=== PATIENT | female | born 1970 | race Asian ===

== ENCOUNTER 2018-07-07 18:33 | Emergency (ER) | payer OTHER ==
[2018-07-07 19:03] LABS: Absolute Lymphocytes (CBC) 1.6 K/uL (0.7-4.9); Absolute Monocytes 0.3 K/uL (0.1-1.3); Absolute Neutrophil 3.5 K/uL (1.8-8.0); Basophils % 0.4 % (0-1.3); Eosinophils % 0.5 % (0-4.4); Hematocrit 41.9 % (36.0-45.0); Lymphocytes % 29.7 % (15.3-44.8); MCH 29.7 pg (27.0-35.0); MCV 87.7 fL (80-100); MPV 6.9 fL (7.6-11.3); Monocytes % 5.4 % (3.3-12.3); RBC Red Blood Cell Count 4.78 M/uL (3.86-4.86)
[2018-07-07 19:12] LABS: Protime INR 1.02
--- NOTE | 2018-07-07 19:13 | RAD REPORT ---
EXAM DESCRIPTION: CT - Ct Stroke Brain Wo Cont - 07/07/2018 6:48 pm CLINICAL HISTORY: Numbness, weakness, headache CLINICAL HISTORY: None. TECHNIQUE: Axial 5 millimeter thick images of the head were obtained without IV contrast. All CT scans are performed using dose optimization technique as appropriate and may include automated exposure control or mA/KV adjustment according to patient size. FINDINGS: No intracranial hemorrhage, mass, or cerebral edema. No acute infarction identifiable. No cortical edema or sulcal effacement. Rios matter-white matter differentiation is preserved. Visualized portions of the mastoid air cells, paranasal sinuses, and orbits are unremarkable. Findings telephoned to doctor Richards 7:01 p.m. IMPRESSION: No CT evidence of acute intracranial process.
[2018-07-07 19:26] LABS: Potassium 3.4 mmol/L (3.5-5.1)
[2018-07-07 19:45] LABS: Arterial Blood Carboxyhemoglob 0.8 % (0-1.5); Blood Gas Oxyhemoglobin 96.8 % (94-97); Blood O2 Saturation 98.4 % (92-98.5)
[2018-07-07] MEDS ORDERED: LORazepam 2 MG/ML VIAL ONE (20:04)
--- NOTE | 2018-07-07 20:07 | RAD REPORT ---
EXAM DESCRIPTION: RAD - Chest Single View - 07/07/2018 7:24 pm CLINICAL HISTORY: Shortness of breath COMPARISON: None. TECHNIQUE: AP portable chest image was obtained 1903 hours . FINDINGS: Lungs are clear. Heart and vasculature are normal. No measurable pleural effusion and no p neumothorax. No acute bony abnormality seen. No acute aortic findings suspected. IMPRESSION: No acute cardiopulmonary process.
--- NOTE | 2018-07-07 21:02 | EDPHYS ---
Physician Documentation [facility] Name: Delores West Age: 47 yrs Sex: Female : 1970 Arrival Date: 07/07/2018 Time: 18:34 Bed 8 Private MD: ED Physician Juan Richards HPI: 07/07 19:00 This 47 yrs old Female presents to ER via Ambulatory with complaints of Numbness, pm1 Memory Loss, Weakness. 19:00 The patient's problem is reported as paresthesias, in right upper extremity, in right pm1 lower extremity, in left upper extremity, in left lower extremity, circumoral . Onset: The symptoms/episode began/occurred 1 hour(s) ago. Duration: The episode is continuous. Context: the episode(s) was witnessed, by family, occurred at home, occurred while the patient was at rest, Possible contributing factors include: sleep deprivation, family stressors. The symptoms are alleviated by nothing. The symptoms are aggravated by nothing. Associated signs and symptoms: Pertinent positives: headache, Pertinent negatives: abdominal pain, chest pain, nausea, shortness of breath, vomiting. Severity of symptoms: in the emergency department the symptoms are unchanged. Patient's baseline: Neuro: alert and fully oriented, Motor: no deficits, Ambulation: walks without assistance, Speech: normal. The patient has not experienced similar symptoms in the past. The patient has not recently seen a physician. Patient with complaints of on and off headache for 1 week. Having some family stressors at home. 1 hour prior to arrival she started hyperventilating and started feeling numbness to both feet, both hands, and around her mouth. Patient is able to move all extremities . Historical: - Allergies: 18:39 No Known Allergies; la1 - PMHx: 18:39 None; la1 - Immunization history:: Adult Immunizations up to date. - Social history:: Smoking status: Patient/guardian denies using tobacco. - Ebola Screening: : No symptoms or risks identified at this time. ROS: 19:00 Constitutional: Negative for fever, chills, and weight loss, Eyes: Negative for injury, pm1 pain, redness, and discharge, ENT: Negative for injury, pain, and discharge, Neck: Negative for injury, pain, and swelling, Cardiovascular: Negative for chest pain, palpitations, and edema, Respiratory: Negative for shortness of breath, cough, wheezing, and pleuritic chest pain, Abdomen/GI: Negative for abdominal pain, nausea, vomiting, diarrhea, and constipation, Back: Negative for injury and pain, : Negative for injury, bleeding, discharge, and swelling, MS/Extremity: Negative for injury and deformity, Skin: Negative for injury, rash, and discoloration. 19:00 Neuro: Positive for headache, numbness, tingling, of the right hand, left hand, right foot, left foot and mouth, Negative for altered mental status, dizziness, syncope, near syncope. 19:00 Psych: Positive for anxiety, insomnia, Negative for drug dependence, alcohol dependence, auditory hallucinations, visual hallucinations, homicidal ideation, suicide gesture, suicidal ideation. Exam: 19:00 Radiologist reports: Negative pm1 19:00 Constitutional: This is a well developed, well nourished patient who is awake, alert, and in no acute distress. Head/Face: Normocephalic, atraumatic. Eyes: Pupils equal round and reactive to light, extra-ocular motions intact. Lids and lashes normal. Conjunctiva and sclera are non-icteric and not injected. Cornea within normal limits. Periorbital areas with no swelling, redness, or edema. ENT: Nares patent. No nasal discharge, no septal abnormalities noted. Tympanic membranes are normal and external auditory canals are clear. Oropharynx with no redness, swelling, or masses, exudates, or evidence of obstruction, uvula midline. Mucous membranes moist. Neck: Trachea midline, no thyromegaly or masses palpated, and no cervical lymphadenopathy. Supple, full range of motion without nuchal rigidity, or vertebral point tenderness. No Meningismus. Chest/axilla: Normal chest wall appearance and motion. Nontender with no deformity. No lesions are appreciated. Cardiovascular: Regular rate and rhythm with a normal S1 and S2. No gallops, murmurs, or rubs. Normal PMI, no JVD. No pulse deficits. Respiratory: Lungs have equal breath sounds bilaterally, clear to auscultation and percussion. No rales, rhonchi or wheezes noted. No increased work of breathing, no retractions or nasal flaring. Abdomen/GI: Soft, non-tender, with normal bowel sounds. No distension or tympany. No guarding or rebound. No evidence of tenderness throughout. Back: No spinal tenderness. No costovertebral tenderness. Full range of motion. Skin: Warm, dry with normal turgor. Normal color with no rashes, no lesions, and no evidence of cellulitis. MS/ Extremity: Pulses equal, no cyanosis. Neurovascular intact. Full, normal range of motion. 19:00 Neuro: Orientation: is normal, Mentation: is normal, Cranial nerves: CN II- XII are normal as tested, Cerebellar function: normal finger to nose testing, Motor: moves all fours, strength is normal, strength is 5/5 in all extremities, Sensation: is normal, no obvious gross deficits, seizure activity, is not displayed by the patient. 19:00 Psych: Behavior/mood is anxious, Affect is animated, Oriented to person, place, time. Vital Signs: 18:36 BP 158 / 102; Pulse 120; Resp 20; Temp 98.1; Pulse Ox 100% on R/A; Weight 51.71 kg; la1 20:05 BP 152 / 90; Pulse 81; Resp 24; Pulse Ox 100% ; aa1 21:01 BP 136 / 82 RA Supine (auto/reg); Pulse 82 MON; Resp 12 S; Pulse Ox 100% on R/A; ds4 NIH Stroke Scale Scores: 19:22 NIHSS Score: 1 aa1 MDM: 18:50 Patient medically screened. soham 20:00 ED course: TPA not given because the patient is not having a CVA. pm1 21:00 Data reviewed: vital signs. Data interpreted: Pulse oximetry: on room air is 100 %. pm1 Interpretation: normal. Counseling: I had a detailed discussion with the patient and/or guardian regarding: the historical points, exam findings, and any diagnostic results supporting the discharge/admit diagnosis, lab results, radiology results, the need for outpatient follow up, to return to the emergency department if symptoms worsen or persist or if there are any questions or concerns that arise at home. 21:35 ED course: Patient with resolution of symptoms with Ativan given in ER. Will discharge pm1 patient home with small quantity of Ativan prn until patient can follow up with PCP and or psychiatry . 07/07 18:43 Order name: Basic Metabolic Panel; Complete Time: 19:49 [facility] 07/07 18:43 Order name: CBC with Diff; Complete Time: 19:49 [facility] 07/07 18:43 Order name: Protime (+inr); Complete Time: 19:49 [facility] 07/07 18:43 Order name: Ptt, Activated; Complete Time: 19:49 [facility] 07/07 18:43 Order name: CT Stroke Brain w/o Contrast; Complete Time: 19:49 [facility] 07/07 18:50 Order name: ABG; Complete Time: 19:49 [facility] 07/07 18:43 Order name: Stroke CXR 1 View; Complete Time: 20:16 [facility] 07/07 18:43 Order name: EKG; Complete Time: 18:44 [facility] 07/07 18:43 Order name: Accucheck; Complete Time: 20:09 [facility] 07/07 18:43 Order name: Cardiac monitoring; Complete Time: 19:18 [facility] 07/07 18:43 Order name: EKG - Nurse/Tech; Complete Time: 19:19 [facility] 07/07 18:43 Order name: IV Saline Lock; Complete Time: 19:19 [facility] 07/07 18:43 Order name: Labs collected and sent; Complete Time: 19:19 [facility] 07/07 18:43 Order name: NPO; Complete Time: 19:19 [facility] 07/07 18:43 Order name: O2 Per Protocol; Complete Time: 19:19 [facility] 07/07 18:43 Order name: O2 Sat Monitoring; Complete Time: 19:19 [facility] 07/07 18:43 Order name: Stroke Swallow Screen; Complete Time: 20:09 jm Administered Medications: 20:05 Drug: Ativan 0.5 mg Route: IVP; Site: left antecubital; jd3 21:34 Follow up: Response: No adverse reaction jd3 21:25 Drug: Ativan 0.5 mg Route: IVP; Site: left antecubital; jd3 21:34 Follow up: Response: Medication administered at discharge. jd3 Point of Care Testing: Blood Glucose: 19:20 Blood Glucose: 128 mg/dL; aa1 Ranges: Critical Glucose Levels:Adult <50 mg/dl or >400 mg/dl <40 mg/dl or >180 mg/dl Disposition: 07/07/18 21:01 Discharged to Home. Impression: Headache, Hyperventilation. - Condition is Stable. - Discharge Instructions: General Headache Without Cause, Hyperventilation, Generalized Anxiety Disorder. - Prescriptions for Ativan 0.5 mg Oral Tablet - take 1 tablet by ORAL route every 8 hours As needed; 10 tablet. - Medication Reconciliation Form, Thank You Letter form. - Follow up: Emergency Department; When: As needed; Reason: Worsening of condition. Follow up: Private Physician; When: 2 - 3 days; Reason: Recheck today's complaints, Continuance of care, Re-evaluation by your physician. - Problem is new. - Symptoms have improved. NIH Stroke Scale - NIH Stroke Score Date: 07/07/2018 Time: 19:22 Total Score = 1 1a. Level of Consciousness (LOC) - 0(Alert) 1b. Level of Consciousness (LOC) (Year \T\ Age) - 0(Both) 1c. LOC Commands (Open \T\ Closes Eyes/Varitypist) - 0(Both) 2. Best Gaze (Lateral Gaze Paresis) - 0(Normal) 3. Visual Field Loss - 0(No visual loss) 4. Facial Palsy - 0(Normal) 5a. Left Arm: Motor (10-second hold) - 0(No drift) 5b. Right Arm: Motor (10-second hold) - 0(No drift) 6a. Left Leg: Motor (5-second hold - always test supine) - 0(No drift) 6b. Right Leg: Motor (5-second hold - always test supine) - 0(No drift) 7. Limb Ataxia (finger/nose \T\ heel/jones - test with eyes open) - 0(Absent) 8. Sensory Loss (pinprick arms/legs/face) - 1(Mild to moderate loss) 9. Best Language: Aphasia (description/naming/reading) - 0(No aphasia) 10. Dysarthria (speech clarity - read or repeat words) - 0(Normal) 11. Extinction and Inattention (visual/tactile/auditory/spatial/personal) - 0(No abnormality) Initials: aa1 Addendum: 07/09/2018 07:15 Co-signature as Attending Physician, Juan Richards MD I agree with the [facility] assessment and plan of care. Signatures: Dispatcher [employer] EDBia Tavarez RN RN aa1 Juan Richards MD MD [facility] Brandon Douglas PA PA jmm Attema, Lee, RN RN la1 Oh Siddiqui, BUSINESS SERVICES DIRECTOR BUSINESS SERVICES DIRECTOR pm1 Gilberto Caceres RN RN jd3 Corrections: (The following items were deleted from the chart) 07/07 21:36 21:01 07/07/2018 21:01 Discharged to Home. Impression: Headache; aa1 Hyperventilation. Condition is Stable. Forms are Medication Reconciliation Form, Thank You Letter, Antibiotic Education, Prescription Opioid Use. Follow up: Emergency Department; When: As needed; Reason: Worsening of condition. Follow up: Private Physician; When: 2 - 3 days; Reason: Recheck today's complaints, Continuance of care, Re-evaluation by your physician. Problem is new. Symptoms have improved. pm1
--- NOTE | 2018-07-07 21:02 | ER ---
Nurse's Notes [facility] Emergency Department Name: Delores West Age: 47 yrs Sex: Female : 1970 Arrival Date: 07/07/2018 Time: 18:34 Bed 8 Private MD: Diagnosis: Headache;Hyperventilation Presentation: 07/07 18:36 Presenting complaint: Patient states: I have had a headache since this morning but I la1 have been having intermittent memory loss for the last week and numbness in both arms starting at 1800. Transition of care: patient was not received from another setting of care. Onset of symptoms was July 07, 2018 at 18:00. Risk Assessment: Do you want to hurt yourself or someone else? Patient reports no desire to harm self or others. Initial Sepsis Screen: Does the patient meet any 2 criteria? No. Patient's initial sepsis screen is negative. Does the patient have a suspected source of infection? No. Patient's initial sepsis screen is negative. Care prior to arrival: None. 18:36 Method Of Arrival: Ambulatory la1 18:36 Acuity: DENISE 2 la1 19:20 Pre-hospital glucose is not applicable to this patient. aa1 Stroke Activation: Symptom onset < 3 hours Physician: Stroke Attending; Name: ; Notified At: ; Arrived At: Physician: Chief Stroke Resident; Name: ; Notified At: ; Arrived At: Physician: Stroke Resident; Name: ; Notified At: ; Arrived At: Physician: ED Attending; Name: ; Notified At: ; Arrived At: Physician: ED Resident; Name: ; Notified At: ; Arrived At: Historical: - Allergies: 18:39 No Known Allergies; la1 - PMHx: 18:39 None; la1 - Immunization history:: Adult Immunizations up to date. - Social history:: Smoking status: Patient/guardian denies using tobacco. - Ebola Screening: : No symptoms or risks identified at this time. Screenin:10 Abuse screen: Denies threats or abuse. Denies injuries from another. Nutritional mg2 screening: No deficits noted. Tuberculosis screening: No symptoms or risk factors identified. Fall Risk IV access (20 points). Gait- Weak (10 pts.). Assessment: 19:15 General: Appears in no apparent distress. comfortable, slender, well groomed, Behavior aa1 is cooperative, appropriate for age, anxious. Pain: Complains of pain in head Quality of pain is described as aching, Pain began 1 week ago Is intermittent. Neuro: Level of Consciousness is awake, alert, obeys commands, Oriented to person, place, time, situation, Fashion Director Party Plan Sales are equal bilaterally Moves all extremities. Full function Speech is normal, Facial symmetry appears normal, Pupils are PERRLA, Numbness in right arm, left arm and mouth Reports headache Denies blurred vision dizziness. Cardiovascular: Heart tones S1 S2 present Rhythm is regular. Respiratory: Airway is patent Respiratory effort is even, unlabored, Respiratory pattern is tachypnea. GI: No signs and/or symptoms were reported involving the gastrointestinal system. : No signs and/or symptoms were reported regarding the genitourinary system. EENT: No signs and/or symptoms were reported regarding the EENT system. Derm: Skin is intact, is healthy with good turgor, Skin is pink, warm \T\ dry. Musculoskeletal: Circulation, motion, and sensation intact. Capillary refill < 3 seconds. 19:21 Patient has been NPO before screening. The patient is alert, and able to follow aa1 commands. The patient does not exhibit slurred or garbled speech. The patient is not exhibiting difficulty speaking. The patient does not exhibit difficulty understanding words. The patient is able to swallow own secretions with no drooling or need for suction. Patient tolerated one teaspoon of water. No drooling, immediate coughing, gurgling, or clearing of the throat was noted. The patient tolerated 90mL of water. No drooling, immediate coughing, gurgling, or clearing of the throat was noted. The patient passed the bedside swallow screening. Oral medications may be given as ordered. Contact Physician for further diet orders. 19:21 Provider notified of bedside swallow screening results: Oh Siddiqui NP. T-PA aa1 (Activase) Screening: Contraindications: Rapidly improving condition or minor deficit: Yes. 20:49 Reassessment: Patient appears in no apparent distress at this time. Patient and/or aa1 family updated on plan of care and expected duration. Pain level reassessed. Patient is alert, oriented x 3, equal unlabored respirations, skin warm/dry/pink. Pt reports she is feeling a little better but her mouth still feels numb. 21:33 Reassessment: Patient appears in no apparent distress at this time. Patient is alert, aa1 oriented x 3, equal unlabored respirations, skin warm/dry/pink. Discussed d/c \T\ f/u instructions with pt \T\ family; verbalizes understanding of instructions Patient denies pain at this time. Patient states feeling better. Vital Signs: 18:36 BP 158 / 102; Pulse 120; Resp 20; Temp 98.1; Pulse Ox 100% on R/A; Weight 51.71 kg; la1 20:05 BP 152 / 90; Pulse 81; Resp 24; Pulse Ox 100% ; aa1 21:01 BP 136 / 82 RA Supine (auto/reg); Pulse 82 MON; Resp 12 S; Pulse Ox 100% on R/A; ds4 NIH Stroke Scale Scores: 19:22 NIHSS Score: 1 aa1 ED Course: 18:34 Patient arrived in ED. rg4 18:38 Triage completed. la1 18:39 Arm band placed on right wrist. la1 18:43 Oh Siddiqui NP is PHCP. pm1 18:43 Juan Richards MD is Attending Physician. pm1 18:43 Mike Hamilton, AARON is Primary Nurse. mg2 18:47 CT completed. Patient moved to CT via wheelchair. Patient moved back from CT. cw1 18:48 CT Stroke Brain w/o Contrast In Process Unspecified. EDMS 18:59 Initial lab(s) drawn, by label stitcher, sent to lab. Inserted saline lock: 20 gauge in left jb1 antecubital area, using aseptic technique. 19:10 Patient has correct armband on for positive identification. Bed in low position. Call aa1 light in reach. Side rails up X2. Adult w/ patient. tax examiner on. Pulse ox on. NIBP on. 19:16 EKG done, by ED staff, reviewed by Oh Siddiqui NP. aa1 19:20 Oxygen administration via nasal cannula \T\ 2L/min O2 via pt O2 sat decreased to low 90's aa1 while sleeping; placed on 2L NC. 19:24 Stroke CXR 1 View In Process Unspecified. EDMS 20:23 Warm blanket given. jd3 21:35 No provider procedures requiring assistance completed. IV discontinued, intact, aa1 bleeding controlled, No redness/swelling at site. Pressure dressing applied. Administered Medications: 20:05 Drug: Ativan 0.5 mg Route: IVP; Site: left antecubital; jd3 21:34 Follow up: Response: No adverse reaction jd3 21:25 Drug: Ativan 0.5 mg Route: IVP; Site: left antecubital; jd3 21:34 Follow up: Response: Medication administered at discharge. jd3 Point of Care Testing: Blood Glucose: 19:20 Blood Glucose: 128 mg/dL; aa1 Ranges: Outcome: 21:01 Discharge ordered by MD. pm1 21:35 Discharged to home via wheelchair, with family. aa1 21:35 Condition: good 21:35 Discharge instructions given to patient, family, Instructed on discharge instructions, follow up and referral plans. medication usage, Demonstrated understanding of instructions, follow-up care, medications, Prescriptions given X 1. 21:36 Patient left the ED. aa1 NIH Stroke Scale - NIH Stroke Score Date: 07/07/2018 Time: 19:22 Total Score = 1 1a. Level of Consciousness (LOC) - 0(Alert) 1b. Level of Consciousness (LOC) (Year \T\ Age) - 0(Both) 1c. LOC Commands (Open \T\ Closes Eyes/Fish Smoker) - 0(Both) 2. Best Gaze (Lateral Gaze Paresis) - 0(Normal) 3. Visual Field Loss - 0(No visual loss) 4. Facial Palsy - 0(Normal) 5a. Left Arm: Motor (10-second hold) - 0(No drift) 5b. Right Arm: Motor (10-second hold) - 0(No drift) 6a. Left Leg: Motor (5-second hold - always test supine) - 0(No drift) 6b. Right Leg: Motor (5-second hold - always test supine) - 0(No drift) 7. Limb Ataxia (finger/nose \T\ heel/jones - test with eyes open) - 0(Absent) 8. Sensory Loss (pinprick arms/legs/face) - 1(Mild to moderate loss) 9. Best Language: Aphasia (description/naming/reading) - 0(No aphasia) 10. Dysarthria (speech clarity - read or repeat words) - 0(Normal) 11. Extinction and Inattention (visual/tactile/auditory/spatial/personal) - 0(No abnormality) Initials: aa1 Signatures: Dispatcher [employer] Krzysztof Larkin1 Bia Fuentes, RN RN aa1 Sally, Crystal cw1 Amos Guardado ds4 Alber Chan, RN RN la1 Oh Siddiqui, COTTON OPENER COTTON OPENER pm1 Guerline Miller rg4 Gilberto Caceres, RN RN jd3 Joy, Mike RN RN mg2
--- NOTE | 2018-07-09 10:12 | EKG ---
Test Date: 2018-07-07 Test Time: 19:15:41 Cafe Site Attendant: MG MEASUREMENT RESULTS: Intervals: Rate: 87 TX: 128 QRSD: 78 QT: 388 QTc: 466 [place]: P: 34 TX: 128 QRS: 33 T: 7 INTERPRETIVE STATEMENTS: Normal sinus rhythm ST & T wave abnormality, consider inferior ischemia Abnormal ECG No previous ECG available for comparison Electronically Signed On 07-09-18 10:11:01 CDT by Sam Stack
== END 2018-07-07 21:36 | disposition home or self-care (01) ==
LOC: ER 18:33
DX: R51 Headache (principal); R06.4 Hyperventilation
CPT/HCPCS: 36415; 70450; 71045; 80048; 82805; 82962; 85025; 85610; 85730; 93005; 96374; 99285

== ENCOUNTER 2021-05-13 08:40 | Emergency (ER) | payer OTHER ==
--- NOTE | 2021-05-13 11:01 | RAD REPORT ---
EXAM DESCRIPTION: Shayy Single View05/13/2021 10:25 am CLINICAL HISTORY: Weakness COMPARISON: 2018 FINDINGS: The lungs appear clear of acute infiltrate. The heart is normal size IMPRESSION: No acute abnormalities displayed
--- NOTE | 2021-05-13 11:32 | RAD REPORT ---
EXAM DESCRIPTION: MRI - Brain Wo Cont - 05/13/2021 10:04 am CLINICAL HISTORY: Weakness COMPARISON: 2018 TECHNIQUE: Axial, sagittal, and coronal magnetic resonance images of the brain were obtained. FINDINGS: No abnormal signal within the brain Diffusion-weighted/ADC mapping does not reveal evidence of acute infarction. The ventricles are normal caliber. An extra-axial fluid collection is not noted. Fluid within the sinuses/mastoids is not seen IMPRESSION: No acute intracranial abnormality noted
[2021-05-13 12:12] LABS: Absolute Lymphocytes (CBC) 0.7 K/uL (0.7-4.9); Basophils % 0.2 % (0-1.3); Hematocrit 39.7 % (36.0-45.0); Lymphocytes % 14.2 % (15.3-44.8); MPV 6.3 fL (7.6-11.3); Protime INR 0.97; RBC Red Blood Cell Count 4.48 M/uL (3.86-4.86)
[2021-05-13 12:28] LABS: ALT/SGPT 51 U/L (12-78); AST/SGOT 34 U/L (15-37); Albumin 3.9 g/dL (3.4-5.0); Alkaline Phosphatase 93 U/L (45-117); BUN Blood Urea Nitrogen 16 mg/dL (7-18); Bicarbonate 28 mmol/L (21-32); Bilirubin Direct < 0.1 mg/dL (0-0.2); Bilirubin Total 0.2 mg/dL (0.2-1.0); Glucose Level 105 mg/dL (74-106); Magnesium 2.1 mg/dL (1.8-2.4); NT PRO-BNP 70 pg/mL (<125); Sodium Level 143 mmol/L (136-145); Troponin (Emerg Dept Use Only) < 0.02 ng/mL (0.0-0.045)
[2021-05-13] MEDS ORDERED: LORazepam 2 MG/ML VIAL ONE (13:34)
--- NOTE | 2021-05-13 14:59 | EDPHYS ---
Physician Documentation [facility] Name: Delores West Age: 50 yrs Sex: Female : 1970 Arrival Date: 05/13/2021 Time: 08:41 Bed 13 Private MD: ED Physician Michael Jc HPI: 05/13 09:30 This 50 yrs old Female presents to ER via Ambulatory with complaints of Shaking. [facility] 09:30 The patient's problem is reported as paresthesias, all over. Onset: The [facility] symptoms/episode began/occurred gradually, this morning. The symptoms are alleviated by nothing. The symptoms are aggravated by nothing. Associated signs and symptoms: Pertinent positives: tingling, Pertinent negatives: shortness of breath. 50-year-old female with no chronic medical conditions presents emerged part with complaints of tingling and paresthesias throughout the body. Patient also complains of spasms to the lower lip. Patient does have some concerns for CVA. Patient has seen a neurologist for this. Patient also complains of generalized fatigue and a heavy type feeling. Patient denies chest pain. . Historical: - Allergies: 09:26 No Known Allergies; da3 - Immunization history:: Client reports receiving the 2nd dose of the Covid vaccine. ROS: 09:30 Cardiovascular: Negative for chest pain, palpitations, and edema. jmm 09:30 Constitutional: Positive for fatigue. 09:30 Respiratory: Negative for cough. 09:30 Neuro: Positive for numbness, weakness. 09:30 All other systems are negative. Exam: 09:30 Constitutional: This is a well developed, well nourished patient who is awake, alert, jmm and in no acute distress. Head/Face: atraumatic. Eyes: EOMI, no conjunctival erythema appreciated ENT: Moist Mucus Membranes Neck: Trachea midline, Supple Chest/axilla: Normal chest wall appearance and motion. Cardiovascular: Regular rate and rhythm. No edema appreciated Respiratory: Normal respirations, no respiratory distress appreciated Abdomen/GI: Non distended, soft Back: Normal ROM Skin: General appearance color normal MS/ Extremity: Moves all extremities, no obvious deformities appreciated, no edema noted to the lower extremities 09:30 Skin: Appearance: Color: normal in color. 09:30 Neuro: Orientation: is normal, Mentation: is normal, Memory: is normal, Gait: is steady. 09:30 Psych: Behavior/mood is pleasant, cooperative, anxious. Vital Signs: 09:24 BP 130 / 90; Pulse 92; Resp 20; Temp 98; Pulse Ox 100% on R/A; da3 14:00 BP 104 / 71; Pulse 72; Resp 18; Pulse Ox 100% on R/A; tr6 MDM: 10:02 Patient medically screened. [facility] 14:52 Data reviewed: vital signs, nurses notes. Counseling: I had a detailed discussion with [facility] the patient and/or guardian regarding: the historical points, exam findings, and any diagnostic results supporting the discharge/admit diagnosis, the need for outpatient follow up, to return to the emergency department if symptoms worsen or persist or if there are any questions or concerns that arise at home. 14:57 Data reviewed: EMS record. ED course: Patient is alert nontoxic in appearance in the [facility] ED. No focal neuro deficits are appreciated. Patient states symptoms are alleviated after Ativan. MRI is negative for CVA. Patient is encouraged to follow-up with neurology for further evaluation otherwise given strict return precautions. Patient understood and agrees to plan of care.. 05/13 09:30 Order name: Basic Metabolic Panel [facility] 05/13 09:30 Order name: CBC with Diff; Complete Time: 12:26 [facility] 05/13 09:30 Order name: LFT's; Complete Time: 12:31 [facility] 05/13 09:30 Order name: Magnesium; Complete Time: 12:31 [facility] 05/13 09:30 Order name: NT PRO-BNP; Complete Time: 12:31 [facility] 05/13 09:30 Order name: PT-INR; Complete Time: 12:26 [facility] 05/13 09:30 Order name: Troponin (emerg Dept Use Only); Complete Time: 12:31 [facility] 05/13 09:30 Order name: XRAY Chest (1 view); Complete Time: 11:09 [facility] 05/13 09:30 Order name: EKG; Complete Time: 09:31 [facility] 05/13 09:30 Order name: MRI - Brain Wo Cont; Complete Time: 11:34 [facility] 05/13 09:31 Order name: Basic Metabolic Panel; Complete Time: 12:31 [facility] 05/13 12:52 Order name: Troponin (emerg Dept Use Only) [facility] 05/13 12:52 Order name: Troponin (Emerg Dept Use Only); Complete Time: 14:44 [facility] 05/13 09:30 Order name: Cardiac monitoring; Complete Time: 12:20 [facility] 05/13 09:30 Order name: EKG - Nurse/Tech; Complete Time: 12:49 [facility] 05/13 09:30 Order name: IV Saline Lock; Complete Time: 12:06 [facility] 05/13 09:30 Order name: Labs collected and sent; Complete Time: 11:54 [facility] 05/13 09:30 Order name: O2 Per Protocol; Complete Time: 11:54 [facility] 05/13 09:30 Order name: O2 Sat Monitoring; Complete Time: 11:54 [facility] Administered Medications: 13:13 Drug: Ativan (LORazepam) 0.5 mg Route: IVP; Site: right wrist; tr6 Disposition: 16:26 Co-signature as Attending Physician, Michael Jc MD I agree with the assessment and rn plan of care. Attestation: The patient's history, exam findings, diagnostics, and a summary of any interventions or procedures was reviewed in detail with Brandon WELDON. Disposition Summary: 05/13/21 14:58 Discharge Ordered Location: Home [facility] Condition: Stable jm Diagnosis - Paresthesia of skin jmm Followup: [facility] - With: Gold Powell MD - When: 2 - 3 days - Reason: Recheck today's complaints, Continuance of care, Re-evaluation by your physician Discharge Instructions: - Discharge Summary Sheet jm - Paresthesia jm Forms: - Medication Reconciliation Form [facility] - Thank You Letter [facility] - Antibiotic Education [facility] - Prescription Opioid Use [facility] Prescriptions: - Hydroxyzine HCl 25 mg Oral Tablet - take 1 tablet by ORAL route every 6 hours As needed; 12 tablet; Refills: 0, [facility] Product Selection Permitted Signatures: Dispatcher [employer] Brandon England PA PA jmm Nieto, Roman, MD MD rn Ramnanan, Tiffany RN RN tr6 Junior Thayer RN RN da3
--- NOTE | 2021-05-13 14:59 | ER ---
Nurse's Notes [facility] Name: Delores West Age: 50 yrs Sex: Female : 1970 Arrival Date: 05/13/2021 Time: 08:41 Bed 13 Private MD: Diagnosis: Paresthesia of skin Presentation: 05/13 09:23 Chief complaint: Patient states: lower lip shaking and heart palpatatiomn. da3 09:23 Method Of Arrival: Ambulatory da3 09:23 Acuity: DENISE 4 da3 09:25 Coronavirus screen: Client denies travel out of the [place] in the last 14 days. At this da3 time, the client does not indicate any symptoms associated with coronavirus-19. Ebola Screen: No symptoms or risks identified at this time. Risk Assessment: Do you want to hurt yourself or someone else? Patient reports no desire to harm self or others. 09:25 Acuity: DENISE 4 da3 Triage Assessment: 09:26 General: Appears in no apparent distress. comfortable, Behavior is calm, cooperative. da3 Historical: - Allergies: 09:26 No Known Allergies; da3 - Immunization history:: Client reports receiving the 2nd dose of the Covid vaccine. Screenin:22 Abuse screen: Denies threats or abuse. Denies injuries from another. Nutritional tr6 screening: No deficits noted. Tuberculosis screening: No symptoms or risk factors identified. Fall Risk None identified. Assessment: 12:21 General: Appears in no apparent distress. comfortable, Behavior is calm, cooperative, tr6 appropriate for age. Pain: Denies pain. Neuro: No deficits noted. Level of Consciousness is awake, alert, obeys commands, Oriented to person, place, time, situation, Appropriate for age. Cardiovascular: No deficits noted. Respiratory: No deficits noted. GI: No deficits noted. : No deficits noted. EENT: No deficits noted. Derm: No deficits noted. Musculoskeletal: No deficits noted. 14:49 Reassessment: Patient states symptoms have improved. FATEMEH Douglas at bedside to discuss tr6 results and POC with pt. Vital Signs: 09:24 BP 130 / 90; Pulse 92; Resp 20; Temp 98; Pulse Ox 100% on R/A; da3 14:00 BP 104 / 71; Pulse 72; Resp 18; Pulse Ox 100% on R/A; tr6 ED Course: 08:41 Patient arrived in ED. ds1 09:24 Triage completed. da3 09:29 Brandon Douglas PA is PHCP. m 09:29 Michael Jc MD is Attending Physician. jmm 09:58 MRI - Brain Wo Cont In Process Unspecified. EDMS 10:25 XRAY Chest (1 view) In Process Unspecified. EDMS 11:50 Soledad Magana, RN is Primary Nurse. tr6 12:02 Inserted saline lock: 20 gauge in right wrist, using aseptic technique. Blood collected.tr6 12:22 Resting quietly. Awaiting lab results. tr6 12:22 No provider procedures requiring assistance completed. tr6 12:22 Patient has correct armband on for positive identification. Placed in gown. Bed in low tr6 position. Call light in reach. Side rails up X 1. diaphragm builder on. Pulse ox on. NIBP on. Door closed. Noise minimized. Visitors limited. Lights dimmed. Moved to private room. Warm blanket given. 14:58 Gold Powell MD is Referral Physician. [facility] 15:20 IV discontinued, intact, bleeding controlled, No redness/swelling at site. Pressure ss dressing applied. Administered Medications: 13:13 Drug: Ativan (LORazepam) 0.5 mg Route: IVP; Site: right wrist; tr6 Outcome: 14:58 Discharge ordered by . [facility] 15:20 Discharged to home ambulatory. ss 15:20 Condition: good 15:20 Discharge instructions given to patient, Instructed on discharge instructions, follow up and referral plans. medication usage, Demonstrated understanding of instructions, follow-up care, medications, Prescriptions given X 1. 15:21 Patient left the ED. ss Signatures: Dispatcher [employer] EDMS Brandon Douglas PA PA Karina Hays ds1 Cathy Guallpa RN RN Soledad Magana, AARON RN tr6 Junior Thayer, AARON RN da3
[2021-05-13 15:29] VITALS: TEMP 98; O2SAT 100
[2021-05-13 15:31] VITALS: BP 104/71
== END 2021-05-13 15:21 | disposition home or self-care (01) ==
LOC: ER 08:40
DX: R20.2 Paresthesia of skin (principal)
CPT/HCPCS: 36415; 70551; 71045; 80048; 80076; 83735; 83880; 84484; 85025; 85610; 93005; 96374; 99284

== ENCOUNTER 2021-10-14 07:27 | Day surgery (SDC) | payer OTHER ==
[2021-10-14 07:47] LABS: Specific Gravity 1.015 (1.005-1.030)
[2021-10-14] MEDS ORDERED: propofoL 200 MG/20 ML VIAL IV ONE (08:06)
[2021-10-14] MEDS ORDERED: LIDOCAINE 1% MPF 5 ML VIAL ONE (08:06)
[2021-10-14] MEDS ORDERED: FENTANYL CITR 100 MCG/2 ML ONE (08:06)
[2021-10-14] MEDS ORDERED: dexAMETHasone 10 MG/ML VIAL ONE (08:06)
[2021-10-14] MEDS ORDERED: MIDAZOLAM HCL 2 MG/2 ML INJ ONE (08:06)
[2021-10-14] MEDS ORDERED: Ringers Lactate 1,000 ML IV ONE (08:08)
[2021-10-14] MEDS ORDERED: DIAZEPAM 5 MG TABLET ONE (08:08)
[2021-10-14] MEDS ORDERED: DIAZEPAM 5 MG TABLET PO ONE (08:10)
[2021-10-14] MEDS ORDERED: LIDOCAINE 1% W/EPI 1:100,000 MDV 20 ML VIAL ONE (09:09)
[2021-10-14] MEDS ORDERED: GLYCOPYRROLATE 0.2 MG/ML SYR ONE ×2 (09:12→09:14)
[2021-10-14] MEDS ORDERED: KETOROLAC 30 MG/ML INJ ONE (09:38)
[2021-10-14] MEDS ORDERED: HYDROCODONE/APAP 5/325 MG TAB PO PRN (09:47)
--- NOTE | 2021-10-14 09:51 | P.BOP ---
Preoperative diagnosis: AUB-O Postoperative diagnosis: same and endometrial polyps x2 Primary procedure: Operative hysteroscopy polypectomy d/c Head Housekeeper: NONE,NONE Estimated blood loss: MIN Specimen: POLYPS X2 AND emc Findings: RFcavity polyps x2 one on top of the canal one on each side, posterior wall Anesthesia: MAC Complications: None Fluids & blood products: deficit 45ml Transferred to: Recovery Room Condition: Good (myosure lite)
[2021-10-14 10:14] VITALS: BP 106/70; TEMP 96.8; O2SAT 100
--- NOTE | 2021-10-14 12:45 | OP ---
Date of Procedure: 10/14/2021 Surgeon: Fara Milton MD Sole Stainer: None. Preoperative Diagnosis: Abnormal uterine bleeding. Postoperative Diagnosis: Abnormal uterine bleeding and endometrial polyps x2. Procedures Performed: Operative hysteroscopy, polypectomy, D and C. Anesthesia: MAC plus local paracervical block. Specimens: Polyps and endometrial curettings. Complications: No complications. Drains: No drains. Condition: Stable. Distention Used: Normal saline deficit 45 mL and set pressure 80 mmHg. MyoSure Lite device was used for this procedure. Indications: The patient is a 50-year-old female, presented with irregular bleeding, perimenopausal, however, a transvaginal ultrasound showed thickened endometrium. She has history of endometriosis, retroflexed uterus, needed hysteroscopy for evaluation of the cavity, rule out polyps, and endometria l sampling to rule out atypia or malignancy, so she was consented. She wanted to come to the [facility] for doing this under anesthesia due to the fear of pain. After informed consent was verified, she was taken back to OR, placed in supine fashion on the operat ing table, MAC was given and then placed in a dorsal lithotomy position. Vulva and vagina prepped wi th the Betadine. Speculum placed to expose the cervix. Anterior lip injected with 1% lidocaine mixe d with 1:100,000 epinephrine. A 10 cc was injected here and then 5 cc each on 4 and 8 o'clock positi ons. The cervix was traversed with SlimLine diagnostic hysteroscope first and after entering the eyak rine cavity, the polyps were seen as noted. The posterior wall had the polyps on each side towards t he cornual end and there was 1 other tiny polyp distal to the proximal 1 as visualized during the hys teroscopy. The diagnostic scope was removed. Operative scope was placed after dilating the cervix to 18-[place]. The scope was primed and then MyoSure Lite device was taken and inserted through it. The scope was placed in the uterine cavity and set pressure of 80 mmHg, did the polypectomies on both sides and th en endometrial sampling was performed with the same device. The instrument, needle, and sponge counts were correct. EBL was minimal. The patient tolerated the procedure well. Excepting at the very beginning she had some bradycardia, heart rate in the range of 35-40. Then, she came back up without any problems and recovered well without any problems either. EBL was minimal. Instrument, needle, and sponge counts were correct. She will follow up within 1 week for an office visit for pathology review. We will review the pathol ogy. If it is benign, then we can observe. If there is atypia or malignancy, then we will proceed w ith surgical procedures as indicated. For atypia, she can be offered hysterectomy, bilateral salping o-oophorectomy, pelvic washings with me or if it is malignant, then she will be referred. GAGE/NATTY Voice ID: [id number] Report ID: [id number]
[2021-10-15] MEDS ORDERED: HOME MED 1 EA UNK (Cartilage/Collagen/Bor/Hyalur [Joint Health Tablet] Tablet) PO SCH (09:00)
[2021-10-15] MEDS ORDERED: MAGNESIUM CHLORIDE 64 MG TAB PO SCH (09:00)
[2021-10-15] MEDS ORDERED: PROPRANOLOL HCL 10 MG TAB PO SCH (09:00)
[2021-10-15] MEDS ORDERED: HOME MED 1 EA UNK (Magnesium [Magnesium Gluconate] 200 MG Tablet) PO SCH (09:00)
[2021-10-15] MEDS ORDERED: HOME MED 1 EA UNK (Cetirizine Hcl [Zyrtec] 10 MG Tablet) PO SCH (09:00)
[2021-10-15] MEDS ORDERED: MULTIVITAMIN TAB PO SCH (09:00)
[2021-10-15] MEDS ORDERED: CYANOCOBALAMIN 1,000 MCG TAB PO SCH (09:00)
[2021-10-15] MEDS ORDERED: MULTIVITAMIN WITH MINERALS PO SCH (09:00)
[2021-10-15] MEDS ORDERED: VITAMIN D 1000 UNIT TAB PO SCH (09:00)
== END 2021-10-14 11:16 | disposition home or self-care (01) ==
LOC: OR 07:27
PROVIDERS: ATTEND Obstetrics & Gynecology
PROC: 0UDB7ZX Extraction of Endometrium, Via Natural or Artificial Opening, Diagnostic (ICD-10-PCS; 2021-10-14)
PROC: 0UJD8ZZ Inspection of Uterus and Cervix, Via Natural or Artificial Opening Endoscopic (ICD-10-PCS; 2021-10-14)
PROC: 0UB97ZX Excision of Uterus, Via Natural or Artificial Opening, Diagnostic (ICD-10-PCS; principal; 2021-10-14 08:30)
DX: N85.8 Other specified noninflammatory disorders of uterus (principal); Z20.822 Contact with and (suspected) exposure to COVID-19
CPT/HCPCS: 58558; 81025; 88305; U0003; J2704; J3010; J1100; J7120; J2250

== ENCOUNTER 2022-02-16 11:45 | Day surgery (SDC) | payer OTHER ==
[2022-02-16] MEDS ORDERED: Ringers Lactate 1,000 ML IV ONE ×2 (12:10→19:07)
[2022-02-16] MEDS ORDERED: SCOPOLAMINE HYDROBROMIDE PATCH TD ONE (12:11)
[2022-02-16] MEDS ORDERED: NA CHLORIDE 0.9% 100 ML ONE (12:11)
[2022-02-16] MEDS: CEFAZOLIN SODIUM 1 GM/VIAL ONE ×2 (12:15→19:35)
[2022-02-16 12:51] LABS: Absolute Lymphocytes (CBC) 1.2 K/uL (0.7-4.9); Hematocrit 35.2 % (36.0-45.0); Lymphocytes % 19.8 % (15.3-44.8); MPV 6.5 fL (7.6-11.3); RBC Red Blood Cell Count 4.07 M/uL (3.86-4.86)
[2022-02-16] MEDS ORDERED: CEFAZOLIN 2 GM IN 0.9% NACL 2 GM/100 ML BAG IV SCH (13:00)
[2022-02-16 13:01] LABS: Potassium 3.9 mmol/L (3.5-5.1)
[2022-02-16] MEDS ORDERED: BUPIVACAINE 0.25% PF 10 ML VIAL ONE (17:06)
[2022-02-16] MEDS ORDERED: SUCCINYLCHOLINE 20 MG/ML (10 ML) IV ONE (17:40)
[2022-02-16] MEDS ORDERED: ROCURONIUM 50 MG/5 ML VIAL IV ONE (17:43)
[2022-02-16] MEDS ORDERED: propofoL 200 MG/20 ML VIAL IV ONE (17:43)
[2022-02-16] MEDS ORDERED: MIDAZOLAM HCL 2 MG/2 ML INJ ONE (17:43)
[2022-02-16] MEDS ORDERED: FENTANYL CITR 100 MCG/2 ML ONE (17:43)
[2022-02-16] MEDS ORDERED: dexAMETHasone 10 MG/ML VIAL ONE (19:14)
[2022-02-16] MEDS ORDERED: ONDANSETRON 4 MG/2 ML VIAL ONE ×2 (19:27→19:59)
[2022-02-16] MEDS ORDERED: GLYCOPYRROLATE 0.2 MG/ML SYR ONE ×2 (19:27)
[2022-02-16] MEDS ORDERED: NEOSTIGMINE 1 MG/ML -10 ML VIAL ONE (19:27)
[2022-02-16] MEDS ORDERED: MEPERIDINE HCL 25 MG/ML SYR IM PRN (19:28)
[2022-02-16] MEDS ORDERED: PROMETHAZINE INJ 25 MG/ML AMP IV PRN (19:28)
[2022-02-16] MEDS ORDERED: HYDROCODONE/APAP 5/325 MG TAB PO PRN (19:28)
[2022-02-16] MEDS ORDERED: PROMETHAZINE INJ 25 MG/ML AMP ONE (19:35)
--- NOTE | 2022-02-16 19:35 | P.BOP ---
Preoperative diagnosis: post-op hysterectomy vaginal bleeding Postoperative diagnosis: superficial vaginal cuff separation Primary procedure: exam under anesthesia and revision of vaginal cuff with resuturing Primary Care Pediatrician: Lucy Osborn (MichaelCasandra) Estimated blood loss: 50ml Specimen: none Findings: superficial separation of vaginal cuff repaired with 6 figure 8 sutures Anesthesia: General Complications: None Implants: N/A Fluids & blood products: 500ml urine Transferred to: Recovery Room Condition: Good
[2022-02-16] MEDS ORDERED: KETOROLAC 30 MG/ML INJ ONE (19:57)
[2022-02-16 20:12] VITALS: TEMP 97.5; O2SAT 99
[2022-02-16] MEDS ORDERED: HYDROCODONE/APAP 5/325 MG TAB ONE (20:24)
[2022-02-16 21:37] VITALS: BP 134/82
[2022-02-17] MEDS ORDERED: MULTIVITAMIN TAB PO SCH (09:00)
[2022-02-17] MEDS ORDERED: HOME MED 1 EA UNK (Cartilage/Collagen/Bor/Hyalur [Joint Health Tablet] Tablet) PO SCH (09:00)
[2022-02-17] MEDS ORDERED: HOME MED 1 EA UNK (Magnesium [Magnesium Gluconate] 200 MG Tablet) PO SCH (09:00)
[2022-02-17] MEDS ORDERED: MAGNESIUM CHLORIDE 64 MG TAB PO SCH (09:00)
[2022-02-17] MEDS ORDERED: CYANOCOBALAMIN 1,000 MCG TAB PO SCH (09:00)
[2022-02-17] MEDS ORDERED: HOME MED 1 EA UNK (Cetirizine Hcl [Zyrtec] 10 MG Tablet) PO SCH (09:00)
[2022-02-17] MEDS ORDERED: VITAMIN D 1000 UNIT TAB PO SCH (09:00)
[2022-02-17] MEDS ORDERED: PROPRANOLOL HCL 10 MG TAB PO SCH (09:00)
[2022-02-17] MEDS ORDERED: MULTIVITAMIN WITH MINERALS PO SCH (09:00)
--- NOTE | 2022-02-18 03:40 | OP ---
Date of Procedure: 02/16/2022 Surgeon: Fara Milton MD Powder Nipper: Lucy Roland. Second physician assistant psychiatry, Casanrda Rodriguez. Preoperative Diagnosis: Postop from laparoscopic hysterectomy, robotic assisted with vaginal cuff bl eeding actively, 4-1/2 weeks postop. Postoperative Diagnosis: Superficial vaginal cuff separation and bleeding. No cuff dehiscence. Procedures: Exam under anesthesia and revision of vaginal cuff with re-suturing. Ebl: 50. Specimens: None. Complications: None. Drains: None. Findings: Superficial separation of vaginal cuff repaired with 6 [id number]-il-ukuvt sutures of 0 Vicryl . No evidence of fascial cup dehiscence with very good examination using sponge stick as well as vis ual exam. Urine Output: 500. Condition: The patient transferred to the recovery room in stable condition. Indications: The patient had presented with severe vaginal bleeding soaking about 10 pads since [facility]. She was initially evaluated at 11 a.m. in the office. The patient had been seen for 4 weeks p ostop and the cuff was not completely healed and was given instructions to rest further. She has res tarted working 2 weeks postop and denied doing any activity, however, may not be admitting to all act ivities she may be involved with due to her baseline energy level, which was really high. After a clinical examination, vaginal packing was placed, so that they could be pressure. However, d espite no detection of fascial dehiscence, this was concerning enough that she needed re-suturing and she was consented for an exam under anesthesia, re-suturing of the vaginal cuff revision debridement if needed, IV antibiotics, and possible laparoscopy if fascial dehiscence was noted. Ancef was given preop. Two doses were given before the patient left the hospital and she was sent ho nm on Augmentin. Procedure In Detail: She was taken back to OR, placed in supine fashion on the operating table. Gen eral anesthesia was given. She was placed in dorsal lithotomy position. Vulva, vagina, and perineum were prepped and draped in a sterile fashion. A Callaway on the top and Dillon speculum on the bottom w ere used to examine the vaginal cuff. There was active bleeding from the edges of the vaginal epithe lium. So, a center 0 Vicryl [id number] stitch was placed with a CT1 needle and this was used to tag and hold up the entire vaginal cuff for better evaluation and examination. On visual exam, ther e did not appear to be dehiscence. On palpation with the sponge forceps, on the right end of the cuf f, there was slight separation, but unable to push through into the peritoneal cavity due to the fasc ia being intact. Similar situation on the left corner as well. So decided to re-suture the entire c uff. Two further sutures were placed onto the right side of the cuff to close it and stop the bleedi ng and then 3 more towards the left, so a total of 6 were placed. Once these were all done, then on releasing the tension, they were still hemostatic. Thorough irrigation and suction were performed an d all the sutures were trimmed up. Case was completed. The Knight was removed. Instrument and spong e counts were correct at the end of the case. She was recovered from anesthesia and taken to PACU in stable condition and went ahead and discussed with the partner about her surgical findings and plan and full rest was discussed with the patient. Even preoperatively as well as postop return to work w as a priority for her even before the first surgery and so this was discussed in very specific detail , as she is a nail salon worker and the amount of strain that she would have bending over and doing t he nails would really be too strenuous. The patient and the partner understood this. She has a 1-week followup. Floyd sent. GAGE/NATTY Voice ID: [id number] Report ID: [id number]
== END 2022-02-16 21:20 | disposition home or self-care (01) ==
LOC: OR 11:45
PROVIDERS: ATTEND Obstetrics & Gynecology
PROC: 0UQG7ZZ Repair Vagina, Via Natural or Artificial Opening (ICD-10-PCS; principal; 2022-02-16 17:30)
DX: N93.8 Other specified abnormal uterine and vaginal bleeding (principal); T81.32XA Disruption of internal operation (surgical) wound, not elsewhere classified, initial encounter; N85.02 Endometrial intraepithelial neoplasia [EIN]; Z20.822 Contact with and (suspected) exposure to COVID-19
CPT/HCPCS: 57200; 85025; 80048; 36415; 86900; 86850; 86901; U0003; J2704; J2710; J0330; J2250; J3010; J1100; J0690 ×2; J7120 ×2; J2405 ×2; J2550

== ENCOUNTER 2023-07-11 15:29 | Emergency (ER) | payer OTHER ==
--- OUTSIDE RECORDS SUMMARY | 2023-07-11 15:45 | XMS REPORT | Continuity of Care Document ---
:1970 Author Organization [facility] t Address [address] [facility] [address] [place] [id number] Care Team Providers Name Role Phone Iftikhar Stallworth Attending Clinician Unavailable DWYER, Na L Attending Clinician Unavailable Fara Milton Attending Clinician Unavailable Veronika Dwyer Admitting Clinician Unavailable Payers Payer Name Policy Type Policy Number Effective Date Expiration Date S ource Problems Condition Condition Condition Status Onset Resolution Last Treating Co mments Source Name Details Category Date Date Treatment Clinician Date [id number] Other Problem Common chronic Spirit pain - [facility] [id number] Endometrio Problem Co mmon sis of Spirit pelvic - [facility] peritoneum [facility] [id number] Gastroesop Problem Co mmon hageal Spirit reflux - [facility] disease [facility] esophagiti [facility] Allergic Allergic Problem Commo n rhinitis rhinitis, Spiri t unspecifie - [facility] d [facility] y, Medical unspecifie Center d trigger Anxiety Anxiety Problem Common Spirit [facility] [id number] Left foot Problem Co mmon [id number] pain Spirit [facility] [id number] Goiter Problem Common Spirit [facility] Chronic Chronic Problem Common fatigue fatigue Spirit syndrome - [facility] [id number] Elevated Problem Comm on liver Spirit enzymes - [facility] [id number] Need for Problem Comm on hepatitis [facility] C [facility] screening [facility] [id number] Liver cyst Problem Com [facility] Allergies, Adverse Reactions, Alerts Allergy Allergy Status Severity Reaction(s) Onset Inactive Treating Comm ents Source Name Type Date Date Clinician brittanie L[place]ola [place] N/V [facility] [place] 00:00: d [facility] Social History Social Habit Start Date Stop Date Quantity Comments Source History of Tobacco Use Co mmon [facility] Sex Assigned At Com [facility] Smoking Status Start Date Stop Date Source Never Smoker Common [facility] Medications Ordered Filled Start Stop Current Ordering Indication Dosage Frequency Signature Comments Components Source Medication Medication Date Date Medication? Clinician (SIG) Name Name Naropin Naropin No 5mg Common (Ropivacain (Ropivacain 9-20 S pirit e HCl) e HCl) 00:00: - [facility] Michelle Martinez No 40mg Common (Triamcinol (Triamcinol 9-20 S pirit one) one) 00:00: - [facility] Naropin Naropin 0 No 5mg Common (Ropivacain (Ropivacain 9-20 S pirit e HCl) e HCl) 00:00: - [facility] Michelle Martinez No 40mg Common (Triamcinol (Triamcinol 9-20 S pirit one) one) 00:00: - [facility] Naropin Naropin 2021-0 No 5mg Common (Ropivacain (Ropivacain 9-20 S pirit e HCl) e HCl) 00:00: - [facility] Michelle Kenalog 0 No 40mg Common (Triamcinol (Triamcinol 9-20 S pirit one) one) 00:00: - [facility] Naropin Naropin 2021-0 No 5mg Common (Ropivacain (Ropivacain 9-20 S pirit e HCl) e HCl) 00:00: - [facility] Michelle Juaresalog 0 No 40mg Common (Triamcinol (Triamcinol 9-20 S pirit one) one) 00:00: - [facility] 00 [facility] Naropin Naropin 2021-0 No 5mg Common (Ropivacain (Ropivacain 9-20 S pirit e HCl) e HCl) 00:00: - [facility] 00 [facility] Kenalog Kenalog 2021-0 No 40mg Common (Triamcinol (Triamcinol 9-20 S pirit one) one) 00:00: - [facility] 00 [facility] Naropin Naropin 2021-0 No 5mg Common (Ropivacain (Ropivacain 9-20 S pirit e HCl) e HCl) 00:00: - [facility] 00 [facility] Kenalog Kenalog 2021-0 No 40mg Common (Triamcinol (Triamcinol 9-20 S pirit one) one) 00:00: - [facility] 00 [facility] ZyrTEC ZyrTEC No 1{table QD ZyrTEC Allergy 10 Allergy 10 t} Allergy 10 MG MG MG Blisovi FE Blisovi FE No 1{table QD Blisovi FE 10/14-10/14- t} 10/14 1-20 MG-MCG MG-MCG MG-MCG [place] 3 [place] 3 No 1{capsu QD [place] 3 1000 MG 1000 MG le} 1000 MG Osteo Osteo No Osteo Bi-Flex One Bi-Flex One Bi-Flex Per Day - Per Day - One Per Day - Pantoprazol Pantoprazol No Pantoprazo e Sodium 40 e Sodium 40 le Sodium MG MG 40 MG Slow Slow No Slow Magnesium/C Magnesium/C Magnesium/ alcium alcium Calcium 70-117 MG 70-117 MG 70-117 MG B12 Folate B12 Folate No B12 Folate 800-800 MCG 800-800 MCG 800-800 MCG Propranolol Propranolol No 1{table QD Propranolo HCl 10 MG HCl 10 MG t} l HCl 10 MG ZyrTEC ZyrTEC No 1{table QD ZyrTEC Allergy 10 Allergy 10 t} Allergy 10 MG MG MG Blisovi FE Blisovi FE No 1{table QD Blisovi FE 10/14-10/14 1-20 t} 10/14 1-20 MG-MCG MG-MCG MG-MCG [place] 3 [place] 3 No 1{capsu QD [place] 3 1000 MG 1000 MG le} 1000 MG Osteo Osteo No Osteo Bi-Flex One Bi-Flex One Bi-Flex Per Day - Per Day - One Per Day - Pantoprazol Pantoprazol No Pantoprazo e Sodium 40 e Sodium 40 le Sodium MG MG 40 MG Slow Slow No Slow Magnesium/C Magnesium/C Magnesium/ alcium alcium Calcium 70-117 MG 70-117 MG 70-117 MG B12 Folate B12 Folate No B12 Folate 800-800 MCG 800-800 MCG 800-800 MCG Propranolol Propranolol No 1{table QD Propranolo HCl 10 MG HCl 10 MG t} l HCl 10 MG ZyrTEC ZyrTEC No 1{table QD ZyrTEC Allergy 10 Allergy 10 t} Allergy 10 MG MG MG Blisovi FE Blisovi FE No 1{table QD Blisovi FE 10/14-10/14 1-20 t} 10/14 1-20 MG-MCG MG-MCG MG-MCG [place] 3 [place] 3 No 1{capsu QD [place] 3 1000 MG 1000 MG le} 1000 MG Osteo Osteo No Osteo Bi-Flex One Bi-Flex One Bi-Flex Per Day - Per Day - One Per Day - Pantoprazol Pantoprazol No Pantoprazo e Sodium 40 e Sodium 40 le Sodium MG MG 40 MG Slow Slow No Slow Magnesium/C Magnesium/C Magnesium/ alcium alcium Calcium 70-117 MG 70-117 MG 70-117 MG B12 Folate B12 Folate No B12 Folate 800-800 MCG 800-800 MCG 800-800 MCG Propranolol Propranolol No 1{table QD Propranolo HCl 10 MG HCl 10 MG t} l HCl 10 MG ZyrTEC ZyrTEC No 1{table QD ZyrTEC Allergy 10 Allergy 10 t} Allergy 10 MG MG MG Blisovi FE Blisovi FE No 1{table QD Blisovi FE 10/14-10/14 1-20 t} 10/14 1-20 MG-MCG MG-MCG MG-MCG [place] 3 [place] 3 No 1{capsu QD [place] 3 1000 MG 1000 MG le} 1000 MG Osteo Osteo No Osteo Bi-Flex One Bi-Flex One Bi-Flex Per Day - Per Day - One Per Day - Propranolol Propranolol No 1{table QD Propranolo HCl 10 MG HCl 10 MG t} l HCl 10 MG Osteo Osteo No Osteo Bi-Flex One Bi-Flex One Bi-Flex Per Day - Per Day - One Per Day - Slow Slow No Slow Magnesium/C Magnesium/C Magnesium/ alcium alcium Calcium 70-117 MG 70-117 MG 70-117 MG Pantoprazol Pantoprazol No Pantoprazo e Sodium 40 e Sodium 40 le Sodium MG MG 40 MG ZyrTEC ZyrTEC No 1{table QD ZyrTEC Allergy 10 Allergy 10 t} Allergy 10 MG MG MG [place] 3 [place] 3 No 1{capsu QD [place] 3 1000 MG 1000 MG le} 1000 MG Vitamin C Vitamin C No Vitamin C Complete Complete No Complete Multi-Vitam Multi-Vitam Multi-Riya in in min Blisovi FE Blisovi FE No 1{table QD Blisovi FE 10/14-10/14- t} 10/14-20 MG-MCG MG-MCG MG-MCG B12 Folate B12 Folate No B12 Folate 800-800 MCG 800-800 MCG 800-800 MCG Complete Complete No Complete Multi-Vitam Multi-Vitam Multi-Riya in in min Blisovi FE Blisovi FE No 1{table QD Blisovi FE 10/14-10/14- t} 10/14-20 MG-MCG MG-MCG MG-MCG Vitamin C Vitamin C No Vitamin C B12 Folate B12 Folate No B12 Folate 800-800 MCG 800-800 MCG 800-800 MCG [place] 3 [place] 3 No 1{capsu QD [place] 3 1000 MG 1000 MG le} 1000 MG ZyrTEC ZyrTEC No 1{table QD ZyrTEC Allergy 10 Allergy 10 t} Allergy 10 MG MG MG Slow Slow No Slow Magnesium/C Magnesium/C Magnesium/ alcium alcium Calcium 70-117 MG 70-117 MG 70-117 MG Propranolol Propranolol No 1{table QD Propranolo HCl 10 MG HCl 10 MG t} l HCl 10 MG Osteo Osteo No Osteo Bi-Flex One Bi-Flex One Bi-Flex Per Day - Per Day - One Per Day - Pantoprazol Pantoprazol No Pantoprazo e Sodium 40 e Sodium 40 le Sodium MG MG 40 MG Complete Complete No Complete Multi-Vitam Multi-Vitam Multi-Riya in in min Blisovi FE Blisovi FE No 1{table QD Blisovi FE 10/14-10/14-20 t} 10/14 1-20 MG-MCG MG-MCG MG-MCG Vitamin C Vitamin C No Vitamin C B12 Folate B12 Folate No B12 Folate 800-800 MCG 800-800 MCG 800-800 MCG [place] 3 [place] 3 No 1{capsu QD [place] 3 1000 MG 1000 MG le} 1000 MG ZyrTEC ZyrTEC No 1{table QD ZyrTEC Allergy 10 Allergy 10 t} Allergy 10 MG MG MG Slow Slow No Slow Magnesium/C Magnesium/C Magnesium/ alcium alcium Calcium 70-117 MG 70-117 MG 70-117 MG Propranolol Propranolol No 1{table QD Propranolo HCl 10 MG HCl 10 MG t} l HCl 10 MG Osteo Osteo No Osteo Bi-Flex One Bi-Flex One Bi-Flex Per Day - Per Day - One Per Day - Pantoprazol Pantoprazol No Pantoprazo e Sodium 40 e Sodium 40 le Sodium MG MG 40 MG Propranolol Propranolol No 1{table QD Propranolo HCl 10 MG HCl 10 MG t} l HCl 10 MG Osteo Osteo No Osteo Bi-Flex One Bi-Flex One Bi-Flex Per Day - Per Day - One Per Day - Slow Slow No Slow Magnesium/C Magnesium/C Magnesium/ alcium alcium Calcium 70-117 MG 70-117 MG 70-117 MG Pantoprazol Pantoprazol No Pantoprazo e Sodium 40 e Sodium 40 le Sodium MG MG 40 MG ZyrTEC ZyrTEC No 1{table QD ZyrTEC Allergy 10 Allergy 10 t} Allergy 10 MG MG MG [place] 3 [place] 3 No 1{capsu QD [place] 3 1000 MG 1000 MG le} 1000 MG Vitamin C Vitamin C No Vitamin C Complete Complete No Complete Multi-Vitam Multi-Vitam Multi-Riya in in min Blisovi FE Blisovi FE No 1{table QD Blisovi FE 10/14-10/14-20 t} 10/14 1-20 MG-MCG MG-MCG MG-MCG B12 Folate B12 Folate No B12 Folate 800-800 MCG 800-800 MCG 800-800 MCG Complete Complete No Complete Multi-Vitam Multi-Vitam Multi-Riya in in min Blisovi FE Blisovi FE No 1{table QD Blisovi FE 10/14-10/14 1-20 t} 10/14 1-20 MG-MCG MG-MCG MG-MCG Vitamin C Vitamin C No Vitamin C B12 Folate B12 Folate No B12 Folate 800-800 MCG 800-800 MCG 800-800 MCG [place] 3 [place] 3 No 1{capsu QD [place] 3 1000 MG 1000 MG le} 1000 MG ZyrTEC ZyrTEC No 1{table QD ZyrTEC Allergy 10 Allergy 10 t} Allergy 10 MG MG MG Slow Slow No Slow Magnesium/C Magnesium/C Magnesium/ alcium alcium Calcium 70-117 MG 70-117 MG 70-117 MG Propranolol Propranolol No 1{table QD Propranolo HCl 10 MG HCl 10 MG t} l HCl 10 MG Osteo Osteo No Osteo Bi-Flex One Bi-Flex One Bi-Flex Per Day - Per Day - One Per Day - Pantoprazol Pantoprazol No Pantoprazo e Sodium 40 e Sodium 40 le Sodium MG MG 40 MG Complete Complete No Complete Multi-Vitam Multi-Vitam Multi-Ryia in in min Blisovi FE Blisovi FE No 1{table QD Blisovi FE 10/14-10/14-20 t} 10/14 1-20 MG-MCG MG-MCG MG-MCG Vitamin C Vitamin C No Vitamin C B12 Folate B12 Folate No B12 Folate 800-800 MCG 800-800 MCG 800-800 MCG [place] 3 [place] 3 No 1{capsu QD [place] 3 1000 MG 1000 MG le} 1000 MG ZyrTEC ZyrTEC No 1{table QD ZyrTEC Allergy 10 Allergy 10 t} Allergy 10 MG MG MG Slow Slow No Slow Magnesium/C Magnesium/C Magnesium/ alcium alcium Calcium 70-117 MG 70-117 MG 70-117 MG Propranolol Propranolol No 1{table QD Propranolo HCl 10 MG HCl 10 MG t} l HCl 10 MG Osteo Osteo No Osteo Bi-Flex One Bi-Flex One Bi-Flex Per Day - Per Day - One Per Day - Pantoprazol Pantoprazol No Pantoprazo e Sodium 40 e Sodium 40 le Sodium MG MG 40 MG Pantoprazol Pantoprazol No Pantoprazo e Sodium 40 e Sodium 40 le Sodium MG MG 40 MG Slow Slow No Slow Magnesium/C Magnesium/C Magnesium/ alcium alcium Calcium 70-117 MG 70-117 MG 70-117 MG B12 Folate B12 Folate No B12 Folate 800-800 MCG 800-800 MCG 800-800 MCG Propranolol Propranolol No 1{table QD Propranolo HCl 10 MG HCl 10 MG t} l HCl 10 MG Vital Signs Vital Name Observation Time Observation Value Comments Source height 2022-06-20 08:20:00 60.00 [in_i] Common [facility] weight 2022-06-20 08:20:00 118.4 [lb_av] [facility] temperature 2022-06-20 08:20:00 97.7 [degF] Common [facility] bmi 2022-06-20 08:20:00 23.12 kg/m2 [facility] oximetry 2022-06-20 08:20:00 95 % [facility] respiratory rate 2022-06-20 08:20:00 15 /min Comm [facility] blood pressure 2022-06-20 08:20:00 113 mm[Hg] Common [facility] - systolic [facility] blood pressure 2022-06-20 08:20:00 71 mm[Hg] Common [facility] - diastolic [facility] height 2022-06-14 08:00:00 60.00 [in_i] Common [facility] weight 2022-06-14 08:00:00 121 [lb_av] [facility] temperature 2022-06-14 08:00:00 97.2 [degF] [facility] bmi 2022-06-14 08:00:00 23.63 kg/m2 [facility] S [facility] blood pressure 2022-06-14 08:00:00 116 mm[Hg] Common [facility] - systolic [facility] blood pressure 2022-06-14 08:00:00 74 mm[Hg] Common [facility] - diastolic [facility] height 2022-03-15 08:00:00 60.00 [in_i] Common [facility] weight 2022-03-15 08:00:00 124.0 [lb_av] [facility] temperature 2022-03-15 08:00:00 97.3 [degF] Common [facility] bmi 2022-03-15 08:00:00 24.21 kg/m2 Common [facility] oximetry 2022-03-15 08:00:00 97 % Common [facility] respiratory rate 2022-03-15 08:00:00 16 /min Comm on [facility] blood pressure 2022-03-15 08:00:00 113 mm[Hg] Common [facility] - systolic [facility] blood pressure 2022-03-15 08:00:00 85 mm[Hg] Common [facility] diastolic [facility] Procedures This patient has no known procedures. Encounters Start End Encounter Admission Attending Care Care Encounter Source Date/Time Date/Time Type Type Clinicians Facility Department ID 2023-05-12 Outpatient Stallworth, STLMLC STLMLC [id number] Common 10:53:00 [facility] [id number] [facility] 2023-03-15 Outpatient Stallworth, STLMLC STLMLC [id number] Common 09:14:02 [facility] [id number] [facility] 2023-03-14 Outpatient Stallworth, STLMLC STLMLC [id number] Common 10:19:01 [facility] [address] [facility] 2023-03-13 Outpatient DWYER, Na STLMLC STLMLC [id number] Common 08:04:01 [id number] [facility] 2022-06-20 Outpatient Dwyer, Na STLMLC STLMLC [id number] Common 08:24:02 [id number] [facility] 2022-06-17 Outpatient Dwyer, Na STLMLC STLMLC [id number] Common 07:17:00 [facility] 2022-06-15 Outpatient Dwyer, Na STLMLC STLMLC [id number] Common 09:13:03 [facility] 2022-06-14 Outpatient Dwyer, Na STLMLC STLMLC [id number] Common 08:34:02 [facility] 2022-03-29 Outpatient Dwyer, Na STLMLC STLMLC [id number] Common 10:25:03 [facility] 2022-03-15 Outpatient Veronika Dwyer STLMLC STLMLC [id number] Common 08:03:02 [facility] 2022-06-22 2022-06-22 (TEL) STLMLC STLMLC [id number] Co mmon 00:00:00 00:00:00 [facility] 2022-06-20 2022-06-20 OFFICE STLMLC STLMLC [id number] Co mmon 00:00:00 00:00:00 VISIT EST Spir it PT LEVEL 3 - [facility] 2022-06-14 2022-06-14 OFFICE STLMLC STLMLC [id number] Co mmon 00:00:00 00:00:00 VISIT NEW Spir it PT LEVEL 4 - [facility] 2022-05-23 2022-05-23 (TEL) STLMLC STLMLC [id number] Co mmon 00:00:00 00:00:00 [facility] 2022-05-11 2022-05-11 (TEL) STLMLC STLMLC [id number] Co mmon 00:00:00 00:00:00 [facility] 2022-03-29 2022-03-29 (TEL) STLMLC STLMLC [id number] Co mmon 00:00:00 00:00:00 [facility] 2022-03-15 2022-03-15 (WELLNESS) STLMLC STLMLC [id number] Common 00:00:00 00:00:00 Wellness Spiri t Visit - [facility] 2022-01-13 2022-01-13 Inpatient GREGORIA Milton, [facility]01 [facility] 09:01:00 09:01:00 Fara Marcos [facility] [place], operated by [facility] Results Test Description Test Time Test Comments Results Result Comments Source IRON, TIBC AND FERRITIN PANEL 2022-06-20 00:00:00 Test Item Value Reference Range Interpretation Comme nts IRON, TOTAL (test code = 96 mcg/dL See_Comment N [A utomated message] The 2498-4) system which ge nerated this result transmit cydney reference range: 45-160 m cg/dL. The reference range was not used to interpret th is result as normal/abnormal . IRON BINDING CAPACITY 394 mcg/dL (calc) See_Comment N [Automated message] The (test code = 2500-7) system which generated this result transmit cydney reference range: 250-450 mcg/dL (calc). The reference r tamiko was not used to interpr et this result as normal/abnor mal. % SATURATION (test code 24 % (calc) See_Comment N [Au tomated message] The = 2502-3) system which [employer] nerated this result transmit cydney reference range: 16-45 % (calc). The reference range was not used to interpret th is result as normal/abnormal . FERRITIN (test code = 47 ng/mL See_Comment N [Auto mated message] The 2276-4) system which [employer] nerated this result transmit cydney reference range: 16-232 n g/mL. The reference range was not used to interpret th is result as normal/abnormal . CBC (INCLUDES DIFF/PLT)2022-06-20 00:00:00 Test Item Value Reference Range Interpretation Comments WHITE BLOOD CELL 5.5 See_Comment N [Automated message] COUNT (test code = Thousand/uL The syste m which 6690-2) generated this result transmit cydney reference range : 3.8-10.8 Thousand/uL. Th e reference range was not used to interpret this result as normal/abnormal . RED BLOOD CELL COUNT 5.35 See_Comment H [Autom ated message] (test code = 789-8) Million/uL The syst em which generated this result transmit cydney reference range : 3.80-5.10 Million/uL. The reference range was not used to interpret this result as normal/abnormal . HEMOGLOBIN (test 14.1 g/dL See_Comment N [Automated message] code = 718-7) The system [facility] generated this result transmit cydney reference range : 11.7-15.5 g/dL. The reference range was not used to interpret this result as normal/abnormal . HEMATOCRIT (test 44.4 % See_Comment N [Automated message] code = 4544-3) The system ich generated this result transmit cydney reference range : 35.0-45.0 %. Th e reference range was not used to interpret this result as normal/abnormal . MCV (test code = 83.0 fL See_Comment N [Automated message] 787-2) The system [employer] generated this result transmit [place] reference range : 80.0-100.0 fL. The reference range was not used to interpret this result as normal/abnormal . MCH (test code = 26.4 pg See_Comment L [Automated message] 785-6) The system [employer] generated this result transmit [place] reference range : 27.0-33.0 pg. T he reference range was not used to interpret this result as normal/abnormal . MCHC (test code = 31.8 g/dL See_Comment L [Automate d message] 786-4) The system [employer] generated this result transmit [place] reference range : 32.0-36.0 g/dL. The reference range was not used to interpret this result as normal/abnormal . RDW (test code = 17.2 % See_Comment H [Automated message] 788-0) The system [employer] generated this result transmit cydney reference range : 11.0-15.0 %. Th e reference range was not used to interpret this result as normal/abnormal . PLATELET COUNT (test 312 See_Comment N [Autom ated message] code = 777-3) Thousand/uL The system [facility] generated this result transmit cydney reference range : 140-400 Thousan d/uL. The reference r tamiko was not used to interpret this result as normal/abnormal . MPV (test code = 9.1 fL See_Comment N [Automated message] 776-5) The system [employer] generated this result transmit cydney reference range : 7.5-12.5 fL. Th e reference range was not used to interpret this result as normal/abnormal . ABSOLUTE NEUTROPHILS 3416 cells/uL See_Comment N [Auto mated message] (test code = 751-8) The syst em which generated this result transmit cydney reference range : 1635-8382 cells /uL. The reference r tamiko was not used to interpret this result as normal/abnormal . ABSOLUTE LYMPHOCYTES 1634 cells/uL See_Comment N [Auto mated message] (test code = 731-0) The syst em which generated this result transmit cydney reference range : 850-3900 cells/ uL. The reference r tamiko was not used to interpret this result as normal/abnormal . ABSOLUTE MONOCYTES 380 cells/uL See_Comment N [Automat ed message] (test code = 742-7) The syst em which generated this result transmit cydney reference range : 200-950 cells/u L. The reference r tamiko was not used to interpret this result as normal/abnormal . ABSOLUTE EOSINOPHILS 50 cells/uL See_Comment N [Autom ated message] (test code = 711-2) The syst em which generated this result transmit cydney reference range : 15-500 cells/uL . The reference range was not used to interpret this result as normal/abnormal . ABSOLUTE BASOPHILS 22 cells/uL See_Comment N [Automat ed message] (test code = 704-7) The syst em which generated this result transmit cydney reference range : 0-200 cells/uL. The reference range was not used to interpret this result as normal/abnormal . NEUTROPHILS (test 62.1 % N code = 770-8) LYMPHOCYTES (test 29.7 % N code = 736-9) MONOCYTES (test code 6.9 % N = 5905-5) EOSINOPHILS (test 0.9 % N code = 713-8) BASOPHILS (test code 0.4 % N = 706-2) IRON, TIBC AND FERRITIN [id number] 00:00:00 Test Item Value Reference Range Interpretation Comments IRON, TOTAL (test 96 mcg/dL See_Comment N [Automate d message] code = 2498-4) The system [email or web address] generated this result transmit cydney reference range : 45-160 mcg/dL. The reference range was not used to interpret this result as normal/abnormal . IRON BINDING 394 mcg/dL See_Comment N [Automated mes robert] CAPACITY (test code (calc) The syst em which = 2500-7) generated this result transmit cydney reference range : 250-450 mcg/dL (calc). The reference range was not used to interpret this result as normal/abnormal . % SATURATION (test 24 % (calc) See_Comment N [Automat ed message] code = 2502-3) The system [email or web address] generated this result transmit cydney reference range : 16-45 % (calc). The reference range was not used to interpret this result as normal/abnormal . FERRITIN (test code 47 ng/mL See_Comment N [Automa cydney message] = 5916-4) The system [facility] generated this result transmit cydney reference range : 16-232 ng/mL. T he reference range was not used to interpret this result as normal/abnormal . CBC (INCLUDES DIFF/PLT)2022-06-20 00:00:00 Test Item Value Reference Range Interpretation Comments WHITE BLOOD CELL 5.5 See_Comment N [Automated message] COUNT (test code = Thousand/uL The syste m which 6690-2) generated this result transmit cydney reference range : 3.8-10.8 Thousand/uL. Th e reference range was not used to interpret this result as normal/abnormal . RED BLOOD CELL COUNT 5.35 See_Comment H [Autom ated message] (test code = 789-8) Million/uL The syst em which generated this result transmit cydney reference range : 3.80-5.10 Million/uL. The reference range was not used to interpret this result as normal/abnormal . HEMOGLOBIN (test 14.1 g/dL See_Comment N [Automated message] code = 718-7) The system [facility] generated this result transmit cydney reference range : 11.7-15.5 g/dL. The reference range was not used to interpret this result as normal/abnormal . HEMATOCRIT (test 44.4 % See_Comment N [Automated message] code = 4544-3) The system [facility] generated this result transmit cydney reference range : 35.0-45.0 %. Th e reference range was not used to interpret this result as normal/abnormal . MCV (test code = 83.0 fL See_Comment N [Automated message] 787-2) The system [facility] generated this result transmit cydney reference range : 80.0-100.0 fL. The reference range was not used to interpret this result as normal/abnormal . MCH (test code = 26.4 pg See_Comment L [Automated message] 785-6) The system [facility] generated this result transmit cydney reference range : 27.0-33.0 pg. T he reference range was not used to interpret this result as normal/abnormal . MCHC (test code = 31.8 g/dL See_Comment L [Automate d message] 786-4) The system [facility] generated this result transmit cydney reference range : 32.0-36.0 g/dL. The reference range was not used to interpret this result as normal/abnormal . RDW (test code = 17.2 % See_Comment H [Automated message] 788-0) The system [employer] [facility] generated this result transmit cydney reference range : 11.0-15.0 %. Th e reference range was not used to interpret this result as normal/abnormal . PLATELET COUNT (test 312 See_Comment N [Autom ated message] code = 777-3) Thousand/uL The system [facility] generated this result transmit cydney reference range : 140-400 Thousan d/uL. The reference r tamiko was not used to interpret this result as normal/abnormal . MPV (test code = 9.1 fL See_Comment N [Automated message] 776-5) The system [employer] [facility] generated this result transmit cydney reference range : 7.5-12.5 fL. Th e reference range was not used to interpret this result as normal/abnormal . ABSOLUTE NEUTROPHILS 3416 cells/uL See_Comment N [Auto mated message] (test code = 751-8) The syst em which generated this result transmit cydney reference range : 4314-7184 cells /uL. The reference r tamiko was not used to interpret this result as normal/abnormal . ABSOLUTE LYMPHOCYTES 1634 cells/uL See_Comment N [Auto mated message] (test code = 731-0) The syst em which generated this result transmit cydney reference range : 850-3900 cells/ uL. The reference r tamiko was not used to interpret this result as normal/abnormal . ABSOLUTE MONOCYTES 380 cells/uL See_Comment N [Automat ed message] (test code = 742-7) The syst em which generated this result transmit cydney reference range : 200-950 cells/u L. The reference r tamiko was not used to interpret this result as normal/abnormal . ABSOLUTE EOSINOPHILS 50 cells/uL See_Comment N [Autom ated message] (test code = 711-2) The syst em which generated this result transmit cydney reference range : 15-500 cells/uL . The reference range was not used to interpret this result as normal/abnormal . ABSOLUTE BASOPHILS 22 cells/uL See_Comment N [Automat ed message] (test code = 704-7) The syst em which generated this result transmit cydney reference range : 0-200 cells/uL. The reference range was not used to interpret this result as normal/abnormal . NEUTROPHILS (test 62.1 % N code = 770-8) LYMPHOCYTES (test 29.7 % N code = 736-9) MONOCYTES (test code 6.9 % N = 5905-5) EOSINOPHILS (test 0.9 % N code = 713-8) BASOPHILS (test code 0.4 % N = 706-2) COMPREHENSIVE METABOLIC PANEL(CMP)2022-03-15 00:00:00 Test Item Value Reference Range Interpretation Comments GLUCOSE (test code 91 mg/dL See_Comment N [Automat ed = 2665-7) message] The system which generated this result transmit cydney reference range : 65-99 mg/dL. Th e reference range was not used to interpret this result as normal/abnormal . UREA NITROGEN (BUN) 14 mg/dL See_Comment N [Automa cydney (test code = message] The 9864-0) system which generated this result transmit cydney reference range : 7-25 mg/dL. The reference range was not used to interpret this result as normal/abnormal . CREATININE (test 0.64 mg/dL See_Comment N [Automated code = 2160-0) message] The system which generated this result transmit cydney reference range : 0.50-1.05 mg/dL . The reference range was not u sed to interpret th is result as normal/abnormal . eGFR NON-AFR. 103 mL/min/1.73m2 See_Comment N [Automat ed CHINESE (test code message] The = 25582-3) system which generated this result transmit cydney reference range : > OR = 60 mL/min/1.73m2. The reference range was not used to interpret this result as normal/abnormal . eGFR 120 mL/min/1.73m2 See_Comment N [Automate d CHINESE (test code message] The = 85296-6) system which generated this result transmit cydney reference range : > OR = 60 mL/min/1.73m2. The reference range was not used to interpret this result as normal/abnormal . BUN/CREATININE NOT APPLICABLE See_Comment [Automated RATIO (test code = (calc) message] The 2207-3) system which generated this result transmit cydney reference range : 6-22 (calc). Th e reference range was not used to interpret this result as normal/abnormal . SODIUM (test code = 141 mmol/L See_Comment N [Automa cydney 2951-2) message] The system which generated this result transmit cydney reference range : 135-146 mmol/L. The reference range was not u sed to interpret th is result as normal/abnormal . POTASSIUM (test 4.8 mmol/L See_Comment N [Automated code = 2823-3) message] The system which generated this result transmit cydney reference range : 3.5-5.3 mmol/L. The reference range was not u sed to interpret th is result as normal/abnormal . CHLORIDE (test code 104 mmol/L See_Comment N [Automa cydney = 5-0) message] The system which generated this result transmit cydney reference range : 98-110 mmol/L. The reference range was not used to interpret this result as normal/abnormal . CARBON DIOXIDE 30 mmol/L See_Comment N [Automated (test code = message] The 2028-05) system which generated this result transmit cydney reference range : 20-32 mmol/L. T he reference range was not used to interpret this result as normal/abnormal . CALCIUM (test code 10.0 mg/dL See_Comment N [Automat ed = 61917-0) message] The system which generated this result transmit cydney reference range : 8.6-10.4 mg/dL. The reference range was not u sed to interpret th is result as normal/abnormal . PROTEIN, TOTAL 7.6 g/dL See_Comment N [Automated (test code = message] The 2884-2) system which generated this result transmit cydney reference range : 6.1-8.1 g/dL. T he reference range was not used to interpret this result as normal/abnormal . ALBUMIN (test code 4.5 g/dL See_Comment N [Automat ed = 1751-7) message] The system which generated this result transmit cydney reference range : 3.6-5.1 g/dL. T he reference range was not used to interpret this result as normal/abnormal . GLOBULIN (test code 3.1 g/dL (calc) See_Comment N [Aut omated = 66973-7) message] The system which generated this result transmit cydney reference range : 1.9-3.7 g/dL (calc). The reference range was not used to interpret this result as normal/abnormal . ALBUMIN/GLOBULIN 1.5 (calc) See_Comment N [Automated RATIO (test code = message] The 175) system which generated this result transmit cydney reference range : 1.0-2.5 (calc). The reference range was not u sed to interpret th is result as normal/abnormal . BILIRUBIN, TOTAL 0.4 mg/dL See_Comment N [Automated (test code = message] The 1974-10) system which generated this result transmit cydney reference range : 0.2-1.2 mg/dL. The reference range was not used to interpret this result as normal/abnormal . ALKALINE 100 U/L See_Comment N [Automated PHOSPHATASE (test message] T he code = 6768-6) system which generated this result transmit cydney reference range : 37-153 U/L. The reference range was not used to interpret this result as normal/abnormal . AST (test code = 21 U/L See_Comment N [Automated 1919-) message] The system which generated this result transmit cydney reference range : 10-35 U/L. The reference range was not used to interpret this result as normal/abnormal . ALT (test code = 18 U/L See_Comment N [Automated 1741-) message] The system which generated this result transmit cydney reference range : 6-29 U/L. The reference range was not used to interpret this result as normal/abnormal . LIPID PANEL WITH REFLEX TO DIRECT [id number] 00:00:00 Test Item Value Reference Range Interpretation Comments CHOLESTEROL, TOTAL 220 mg/dL See_Comment H [Automat ed (test code = 2093-3) message ] The system which generated this result transmitted reference range : <200 mg/dL. The reference range was not used to interpret this result as normal/abnormal . HDL CHOLESTEROL (test 73 mg/dL See_Comment N [Auto mated code = 2085-9) message] The system which generated this result transmitted reference range : > OR = 50 mg/dL. The reference range was not used to interpret this result as normal/abnormal . TRIGLYCERIDES (test 65 mg/dL See_Comment N [Automa cydney code = 2571-8) message] The system which generated this result transmitted reference range : <150 mg/dL. The reference range was not used to interpret this result as normal/abnormal . LDL-CHOLESTEROL (test 131 mg/dL H code = 52440-2) (calc) CHOL/HDLC RATIO (test 3.0 (calc) See_Comment N [Auto mated code = 9830-1) message] The system which generated this result transmitted reference range : <5.0 (calc). Th e reference range was not used to interpret this result as normal/abnormal . TSH W/REFLEX TO [id number] 00:00:00 Test Item Value Reference Range Interpretation Comments TSH W/REFLEX TO FT4 (test code = 0.24 mIU/L L 3016-3) CBC (INCLUDES DIFF/PLT)2022-03-15 00:00:00 Test Item Value Reference Range Interpretation Comments WHITE BLOOD CELL 4.4 See_Comment N [Automated message] COUNT (test code = Thousand/uL The syste m which 6690-2) generated this result transmit cydney reference range : 3.8-10.8 Thousand/uL. Th e reference range was not used to interpret this result as normal/abnormal . RED BLOOD CELL COUNT 4.00 See_Comment N [Autom ated message] (test code = 789-8) Million/uL The syst em which generated this result transmit cydney reference range : 3.80-5.10 Million/uL. The reference range was not used to interpret this result as normal/abnormal . HEMOGLOBIN (test 10.9 g/dL See_Comment L [Automated message] code = 718-7) The system [facility] generated this result transmit cydney reference range : 11.7-15.5 g/dL. The reference range was not used to interpret this result as normal/abnormal . HEMATOCRIT (test 35.0 % See_Comment N [Automated message] code = 4544-3) The system [facility] generated this result transmit cydney reference range : 35.0-45.0 %. Th e reference range was not used to interpret this result as normal/abnormal . MCV (test code = 87.5 fL See_Comment N [Automated message] 787-2) The system [facility] generated this result transmit cydney reference range : 80.0-100.0 fL. The reference range was not used to interpret this result as normal/abnormal . MCH (test code = 27.3 pg See_Comment N [Automated message] 785-6) The system [facility] generated this result transmit cydney reference range : 27.0-33.0 pg. T he reference range was not used to interpret this result as normal/abnormal . MCHC (test code = 31.1 g/dL See_Comment L [Automate d message] 786-4) The system [employer] generated this result transmit cydney reference range : 32.0-36.0 g/dL. The reference range was not used to interpret this result as normal/abnormal . RDW (test code = 12.6 % See_Comment N [Automated message] 788-0) The system [employer] generated this result transmit cydney reference range : 11.0-15.0 %. Th e reference range was not used to interpret this result as normal/abnormal . PLATELET COUNT (test 324 See_Comment N [Autom ated message] code = 777-3) Thousand/uL The system [employer] generated this result transmit cydney reference range : 140-400 Thousan d/uL. The reference r tamiko was not used to interpret this result as normal/abnormal . MPV (test code = 9.0 fL See_Comment N [Automated message] 776-5) The system [employer] generated this result transmit cydney reference range : 7.5-12.5 fL. Th e reference range was not used to interpret this result as normal/abnormal . ABSOLUTE NEUTROPHILS 2803 cells/uL See_Comment N [Auto mated message] (test code = 751-8) The syst em which generated this result transmit cydney reference range : 6290-4011 cells /uL. The reference r tamiko was not used to interpret this result as normal/abnormal . ABSOLUTE LYMPHOCYTES 1201 cells/uL See_Comment N [Auto mated message] (test code = 731-0) The syst em which generated this result transmit cydney reference range : 850-3900 cells/ uL. The reference r tamiko was not used to interpret this result as normal/abnormal . ABSOLUTE MONOCYTES 317 cells/uL See_Comment N [Automat ed message] (test code = 742-7) The syst em which generated this result transmit cydney reference range : 200-950 cells/u L. The reference r tamiko was not used to interpret this result as normal/abnormal . ABSOLUTE EOSINOPHILS 70 cells/uL See_Comment N [Autom ated message] (test code = 711-2) The syst em which generated this result transmit cydney reference range : 15-500 cells/uL . The reference range was not used to interpret this result as normal/abnormal . ABSOLUTE BASOPHILS 9 cells/uL See_Comment N [Automat ed message] (test code = 704-7) The syst em which generated this result transmit cydney reference range : 0-200 cells/uL. The reference range was not used to interpret this result as normal/abnormal . NEUTROPHILS (test 63.7 % N code = 770-8) LYMPHOCYTES (test 27.3 % N code = 736-9) MONOCYTES (test code 7.2 % N = 5905-5) EOSINOPHILS (test 1.6 % N code = 713-8) BASOPHILS (test code 0.2 % N = 706-2) HEMOGLOBIN A1C WITH [id number] 00:00:00 Test Item Value Reference Range Interpretation Comments HEMOGLOBIN A1c (test 5.0 % of total See_Comment N [Aut omated message] code = 4548-4) Hgb The system [facility] generated this result transmit cydney reference range : <5.7 % of total Hgb. The reference r tamiko was not used to interpret this result as normal/abnormal . MEAN PLASMA GLUCOSE 101 mg/dL (test code = (calc 44071-2) REFLEXIVE URINE [id number] 00:00:00REFLEXIVE URINE CULTURECYTOLOGY NON [id number] 13:13:00 Test Item Value Reference Range Interpretation Comments CYTOLOGY NON PRINCIPAL ENGINEER (test code = CR) RUN DATE: 01/18/22 [facility] PAGE 1 RUN TIME: 1313 Specimen Inquiry RUN USER: INTERFACE DRE ENT: ADONIS MONSALVE LOC: SHY U #: [id number] AGE/SX: 51/F ROOM: RE01/13/22REG DR: Fara Milton : 70 BED: DIS: STATUS: [facility] TLOC: SPEC #: [id number] RECD: 01/14/22 STATUS: [facility] #: [id number] DESIRAE: 01/13/22-[address]: Fara Milton MD ENTERED: 01/14/22 SP TYPE: CYTO NGYN OTHR DR: Veronika Dwyer DO ORDERED: 93221, 77244, ANATOMIC SPEC, SPECIMEN TRACK COPIES TO: Fara Milton MD [address] [facility] [address] [place] [address] Veronika Dwyer DO [address] [facility] [address] [place] [address] PROCEDURES: 95688 (01/17/22) 00083 (01/17/22) SPECIMEN TRACK (01/14/22) TISSUES: A. ADBOMINAL FLUID - ABDOMINAL PENTONEAL WASHING FINAL DIAGNOSIS Peritoneal fluid, paracentesis, cytology and cell block:- Benign- Mesothelial cells, mild- Proteinaceous background Comment: Suggest clinical/image correlation. GROSS DESCRIPTION Peritoneal fluid. It consists of 50 mL of clear fluid. It is submitted for cytologicpreparation.Thin prep: 1 Cell block: 1 Technical component performed at [id number] , [place] [address] Unless gross only, the diagnosis is based upon microscopic examination.Immunohistochemistry : This test was developed and its performancecharacteristics determined by this laboratory. It has not been approved nordoes it need approval by the [place] FDA. Appropriate positive and negative controls CONTINUED ON NEXT PAGE RUN DATE: 01/18/22 [facility] PAGE 2 RUN TIME: 1313 Specimen Inquiry RUN USER: INTERFACE SPEC #: [id number] PATIENT: ADONIS MONSALVE #[id number] (Continued) ------- GROSS DESCRIPTION (Continued) are reviewed and judged to be acceptable. This laboratory is certified underthe Clinical Laboratory Improvement Amendments (CLIA-88) as qualified toperform high complexity clinical laboratory testing. MICROSCOPIC DESCRIPTION Findings are incorporated into the diagnosis/comments section. ---- Signed SIGNATURE ON Mitchell Lozano 01/18/22 8203 END OF REPORT [id number] 16:16:00 Test Item Value Reference Range Interpretation Comments SURGICAL (test code = SR) RUN DATE: 01/24/22 [facility] PAGE 1 RUN TIME: 1808 Specimen Inquiry RUN USER: INTERFACE DRE ENT: ADONIS MONSALVE LOC: SHY U #: [id number] AGE/SX: 51/F ROOM: RE01/13/22REG DR: Fara Milton : 70 BED: DIS: STATUS: [facility] TLOC: SPEC #: [id number] RECD: 01/14/22 STATUS: [facility] #: [id number] DESIRAE: 01/13/[address] [facility] DR: Fara Milton MD ENTERED: 01/14/22 SP TYPE: SURGICAL OTHR DR: Veronika Dwyer DO ORDERED: 57788, 89527, ANATOMIC SPEC, SPECIMEN TRACK COPIES TO: Fara Milton MD [address] [facility] [address] [place] [address] Veronika Dwyer DO [address] [facility] [address] [place] [address] PROCEDURES: 88954 (01/17/22) 44800 (01/17/22) SPECIMEN TRACK (01/14/22) TISSUES: A. UTERUS - BILATERAL TUBES OVARIES B. URETER BIOPSY - RIGHT DELTA URETER ADDENDUM FINDINGS Addendum #1 Entered: 01/24/22 Addendum findings:- Mildly disordered proliferative endometrium patchy areas- Adenomyosis, mild, inner third Addendum comment: Multiple additional block sections x6 were submitted for furtherevaluation and the endometrium has patchy areas consistent with a mildly disorderedproliferative pattern; in addtion mild adenomyosis is also identified. Hoever, there is no atypical hyperplasia or malignancy identified. The case was also reviewed by Radah Narayan MD, who agrees with the findings mentioned above. Suggest clinical correlation. Addendum Signed SIGNATURE ON FILE SotoEdeno 01/24/221806 CONTINUED ON NEXT PAGE RUN DATE: 01/24/22 [facility] [place] - LAB PAGE 2 RUN TIME: 1808 Specimen Inquiry RUN USER: INTERFACE SPEC #: [id number] PATIENT: ADONIS MONSALVE #[id number] (Continued) ------- FINAL DIAGNOSIS A. Uterus (140 g), fallopian tubes and ovaries, hysterectomy and bilateralsalpingo-oophorectomies :- Cervix, mild acute cervicitis- Endometrium, proliferative pattern- Myometrium, multiple leiomyomata, x6- Serosa, no morphological alterations Ovaries:- Bilateral mesothelial cysts, left greater than right, some calcified on left side, smallcorpus luteum in left side with microcalcifications- Rare follicles, bilaterally- Focal fibrovascular adhesions, right side Fallopian tubes with fimbriated ends:- Wall and lumen identified, bilaterally; no morphologic alterations B. Soft tissue, right delta-ureter, excision:- Soft tissue including fibroadipose, vascular and smooth muscle; no pathologicalalteration Comment: Negative for atypia/malignancy. Suggest clinical correlation. GROSS DESCRIPTION A. Uterus with bilateral ovaries and fallopian tubes. Received is a uterus that poglnd909 g. It measures cornu to cornu 7.5 posterior to anterior 5.5 and from fundus to cervix7.5 cm. The cervix measures 3 x 3 cm with cervical os diameter of 0.6 cm. It is bivalvedto reveal a pink smooth and glistening canal measuring 3.5 cm length. Endometrial cavitymeasures 3 x 1. 3 cm and covered by endometrium 0.3 cm in thickness. The uterine wall hasa thickness of 1.5 - 5 cm. There is a cervical canal polyp measuring .8 x 1 x 0.4 cm. Sectioning through the uterine wall of reveals 6 white well-circumscribed nodules occupyingboth the posterior and anterior uterine crespo measuring 0.8 - 4 cm in maximum dimension. The serosal surface has a fibrinous appearance. Attached to the uterus is a right ovarymeasuring 2.3 x 2 x 1.2 cm. Cut sections reveal unremarkable surface. The right fallopian tube with fimbriated end measures 5.5 cm in length and has a diameterof 0.6 cm. The left ovary measures 2.5 x 1.3 x 1 cm. Cut sections reveal a grosslyunremarkable surface. The left fallopian tube with fimbriated end measures 6 cm in lengthand has a diameter of 0.6 cm. A1 posterior cervix A2 anterior cervix A3 posterior endomyometriumA4 anterior endomyometrium including noduleA5-A7 sections of nodulesA8 posterior reflectionA9 right dcjttD78 right fallopian tube cut surface with bisected fimbriated endA11 left ovary CONTINUED ON NEXT PAGE RUN DATE: 01/24/22 [facility] PAGE 3 RUN TIME: 1808 Specimen Inquiry RUN USER: INTERFACE SPEC #: [id number] PATIENT: ADONIS MONSALVE #[id number] (Continued) ------- GROSS DESCRIPTION (Continued) A12 left fallopian tube cut surface with bisected fimbriated B. Right delta ureter. It consists of red- brown tissue measuring aggregate of 2 x 1.5 x . 4 cm. All as B1.Technical component performed at [id number] , [place] [address] Unless gross only, the diagnosis is based upon microscopic examination.Immunohistochemistry : This test was developed and its performancecharacteristics determined by this laboratory. It has not been approved nordoes it need approval by the [place] FDA. Appropriate positive and negative controlsare reviewed and judged to be acceptable. This laboratory is certified underthe Clinical Laboratory Improvement Amendments (CLIA-88) as qualified toperform high complexity clinical laboratory testing. MICROSCOPIC DESCRIPTION Findings are incorporated into the diagnosis/comments section. ---- Signed SIGNATURE ON FILE Mitchell Soto 01/17/22 1926 END OF REPORT - XR CHEST 1 [id number] 09:47:00 [facility] 1970 Sex: F Name: ADONIS MONSALVE [place] : 1970 Age/S: 51 / F [id number] Unit #: [id number] Loc: [place] [address] Phys: Mali Sun MD Acct: [id number] Dis Date: Status: [facility] PHONE #: [phone] Exam Date: 01/13/2022924 FAX #: Reason: PRE OP EXAMS: CPT: [id number] XR CHEST 1 V 17976 Fluoro Time: DAP (Gy m2): Air Kerma (mGy): Chest Radiograph History: PRE OP Comparison: None at this time Location: 5 A single frontal view of the chest is submitted. The heart is within normal limits in size. Pulmonary vasculature is unremarkable. The visualized lung barnett appear to be free of disease. The bones appear unremarkable. IMPRESSION: There is no radiographic evidence of acute cardiopulmonary disease. at 0947 Reported and signed by: Wilbur Reno M.D. CC: Mali Sun MD; Fara Milton MD; Veronika Dwyer DO PAGE 1 Signed Report Name: ADONIS MONSALVE [place] : 1970 Age/S: 51 / F [address] Unit #: [id number] Loc: [place] [address] Phys: Mali Sun MD Acct: [id number] Dis Date:Status: REG [facility] PHONE #: [phone] Exam Date: 01/13/2022924 FAX #: Reason: PRE OP EXAMS: CPT: [id number] XR CHEST 1 V 78467 Fluoro Time: DAP (Gy m2): Air Kerma (mGy): (Continued) Technologist: Danna Aguilar, RT(R) Trnscb Date/Time: 01/13/2022 (946) t.SDR.PMT Orig Print D/T: S: 01/13/2022 (8989) PAGE 2 Signed ReportPROTHROMBIN [id number] 17:47:00 Test Item Value Reference Range Interpretation Comments PT PATIENT (test 11.1 SECONDS 9.3-12.9 N code = PTP) INTERNATIONAL NORMAL 0.97 INR Unit 0.8-1.2 N TARGE T INR BY RATIO (test code = INDICATIO N Indication INR) INR1. Prophylax is of venous thrombos is 2.0 - 3.0 (orthoped ic surgery), Proph ylaxis of venous throm bosis (other than hig h-risk surgery), Treat ment of Deep Vein Thrombosis/Pulm onary Embolism, Preve ntion of systemic emb olism - Tissue heart va lves, Acute Myocardia l Infarction (to prevent systemic emboli sm), Valvular heart disease, Acute Myocardial Infa rction (to prevent sys temic embolism), Valv ular heart disease, Atrial Fibrillation, Bileaflet mecha nical valve in aortic position.2. Mec hanical prosthetic valv es (high risk), 2. 5 - 3.5 Presence of Lup us Anticoagulant o r Antiphospholipi d Antibodies, Pre vention of systemic emb olism - Acute Myocardia l Infarction (to prevent recurrent infar ct). THROMBOPLASTIN TIME [id number] 17:47:00 Test Item Value Reference Range Interpretation Comments THROMBOPLASTIN TIME PARTIAL 43.1 SECONDS 26-35 H (test code = PTT) COVID 19 INHOUSE [id number] 17:47:00 Test Item Value Reference Range Interpretation Comments COVID 19 INHOUSE AG NEGATIVE Negative Per manu facturer, (test code = negative result s should [id number]) be treated aspr esumptive and, if inconsi stent with clinical signs andsymptoms or necessary for patient man agement, should betested with an alternative mol ecular assay. Negative resultsdo not preclude SA RS-CoV-2 infection and s hould not be usedas the s ole basis for patient man agement decisions. Nega tive results should be considered in t he context of apatient's r ecent exposures, hist ory, presence of cli nicalsigns and symptoms co nsistent with COVID-19. BASIC METABOLIC [id number] 17:33:00 Test Item Value Reference Range Interpretation Comments SODIUM (test code = NA) 142 mmol/L 134-147 N POTASSIUM (test code = 3.9 mmol/L 3.4-5.0 N K) CHLORIDE (test code = 105 mmol/L 100-108 N CL) CARBON DIOXIDE (test 31 mmol/L 21-32 N code = CO2) ANION GAP (test code = 6.0 GAP calc 4.0-15.0 N GAP) GLUCOSE (test code = 89 MG/DL 70-110 N GLU) BLOOD UREA NITROGEN 20 MG/DL 7-18 H (test code = BUN) GLOMERULAR FILTRATION >=60 max estimate >60 RATE (test code = GFR) estGFR CREATININE (test code = 0.5 MG/DL 0.6-1.0 L CREAT) CALCIUM (test code = CA) 9.4 MG/DL 8.5-10.1 N URINALYSIS [id number] 17:30:00 Test Item Value Reference Range Interpretation Comments UA GLUCOSE DIPSTICK (test NEGATIVE mg/dL NEG code = DGLUU) UA BILIRUBIN DIPSTICK (test NEGATIVE mg/dL NEG code = BILU) UA KETONE DIPSTICK (test NEGATIVE mg/dL NEG code = KETU) UA SPECIFIC GRAVITY (test 1.025 SG 1.005-1.030 code = SGU) UA BLOOD DIPSTICK (test TRACE mg/DL NEG A code = PETER) UA PH DIPSTICK (test code = 6.5 pH UNITS 5.0-7.0 KEVIN) UA PROTEIN DIPSTICK (test NEGATIVE mg/dL NEG code = PROU) UA UROBILINIOGEN DIPSTICK 0.2 mg/dL <2.0 (test code = URO) UA NITRITE DIPSTICK (test NEGATIVE SCREEN NEG code = BRIDGET) UA LEUKOCYTE ESTERASE NEGATIVE Leuk/mcL NEGATIVE DIPSTICK (test code = LEUU) Urine Specimen Type: Clean CatchUR HCG [id number] 17:30:00 Test Item Value Reference Range Interpretation Comments UR HCG QUAL (test code = HCGQLU) NEGATIVE NEGATIVE Urine Specimen Type: Clean CatchCBC W/AUTO [id number] 17:26:00 Test Item Value Reference Range Interpretation Comments WHITE BLOOD CELL (test code = 5.5 K/mm3 3.5-11.0 N WBC) RED BLOOD CELL (test code = 4.58 M/mm3 4.70-6.10 L RBC) HEMOGLOBIN (test code = HGB) 13.5 G/DL 10.4-14.9 N HEMATOCRIT (test code = HCT) 40.8 % 31.5-44.1 N MEAN CELL VOLUME (test code = 89.1 Fl 84.5-98.6 N MCV) MEAN CELL HGB (test code = MCH) 29.5 pg 27.0-34.2 N MEAN CELL HGB CONCETRATION 33.1 G/DL 31.5-34.0 N (test code = MCHC) RED CELL DISTRIBUTION WIDTH 12.3 SD 11.5-14.5 N (test code = RDW) PLATELET COUNT (test code = 282 K/mm3 150-450 N PLT) MEAN PLATELET VOLUME (test code 8.50 fL 7.0-10.5 N = MPV) NEUTROPHIL % (test code = NT%) 66.2 % 40-76 N IMMATURE GRANULOCYTE % (test 0.2 % 0.0-5.0 N code = IG%) LYMPHOCYTE % (test code = LY%) 26.4 % 20.5-51.1 N MONOCYTE % (test code = MO%) 5.5 % 1.7-9.3 N EOSINOPHIL % (test code = EO%) 1.3 % 0.0-6.0 N BASOPHIL % (test code = BA%) 0.4 % 0.0-2.0 N NUCLEATED RBC % (test code = 0.0 /100WBC% 0.0-1.0 N NRBC%) NEUTROPHIL # (test code = NT#) 3.7 K/mm3 1.8-7.6 N IMMATURE GRANULOCYTE # (test 0.01 x10 3/uL 0.00-0.03 N code = IG#) LYMPHOCYTE # (test code = LY#) 1.5 K/mm3 0.6-3.2 N MONOCYTE # (test code = MO#) 0.3 K/mm3 0.3-1.1 N EOSINOPHIL # (test code = EO#) 0.1 K/mm3 0.0-0.4 N BASOPHIL # (test code = BA#) 0.0 K/mm3 0.0-0.1 N NUCLEATED RBC # (test code = 0.0 K/mm3 0.0-0.1 N NRBC#) MANUAL DIFF REQUIRED (test code NO DIFF/SCN CRITERIA = MDIFF)
--- NOTE | 2023-07-11 16:53 | RAD REPORT ---
EXAM DESCRIPTION: RADChest Single View07/11/2023 4:30 pm CLINICAL HISTORY: DYSPNEA COMPARISON: Chest Single View dated 05/13/2021; Chest Single View dated 07/07/2018 TECHNIQUE: Portable AP view of the chest. FINDINGS: The lungs are clear. No pneumothorax or effusion. The cardiomediastinal contours are unre markable. IMPRESSION: No acute cardiopulmonary process.
[2023-07-11 17:03] LABS: Hematocrit 36.7 % (36.0-45.0); Lymphocytes % 15.1 % (15.3-44.8); MPV 5.8 fL (7.6-11.3); Platelets 320 thou/uL (152-406); RBC Red Blood Cell Count 4.22 M/uL (3.86-4.86)
[2023-07-11 17:19] LABS: Albumin 3.8 g/dL (3.4-5.0); Bilirubin Direct 0.1 mg/dL (0-0.2); Bilirubin Indirect, Calculated 0.2 mg/dL (0.2-0.8); Bilirubin Total 0.3 mg/dL (0.2-1.0); Potassium 3.5 mEq/L (3.5-5.1); Protein, Total 7.9 g/dL (6.4-8.2)
--- NOTE | 2023-07-11 17:54 | RAD REPORT ---
EXAM DESCRIPTION: CT - Head Brain Wo Cont - 07/11/2023 4:33 pm CLINICAL HISTORY: headache, lightheaded COMPARISON: Ct Stroke Brain Wo Cont dated 07/07/2018 TECHNIQUE: Noncontrast head CT images were obtained without IV contrast. Multiplanar reformats were generated and reviewed. All CT scans are performed using dose optimization technique as appropriate and may include automated exposure control or mA/KV adjustment according to patient size. FINDINGS: No intracranial hemorrhage, mass, or edema. Midline structures are unremarkable. Normal ventricular caliber for age. Rios-white matter differentiation is preserved, without evidence of acute infarct. No abnormal extra- axial fluid collections. Mastoid air cells and visualized portions of the paranasal sinuses are clear. No acute bony findings. IMPRESSION: No evidence of an acute intracranial process.
[2023-07-11] MEDS ORDERED: LORazepam 2 MG/ML VIAL ONE (18:32)
--- NOTE | 2023-07-11 19:28 | ER ---
Nurse's Notes [facility] Name: Delores West Age: 52 yrs Sex: Female : 1970 Arrival Date: 07/11/2023 Time: 15:29 Bed 14 Private MD: Diagnosis: Paresthesia of legs;Elevated blood-pressure reading, without diagnosis of hypertension Presentation: 07/11 15:40 Chief complaint: Patient states: patient reports feeling head numbness, jaw pain from cm10 clinching, shahid leg numbess and tingling. Patient also reports "feeling weird" for 2-3 days. patient reports having a history of anxiety, but doesn't know if this what that is. Coronavirus screen: At this time, the client does not indicate any symptoms associated with coronavirus-19. Ebola Screen: No symptoms or risks identified at this time. Initial Sepsis Screen: Does the patient meet any 2 criteria? No. Patient's initial sepsis screen is negative. Does the patient have a suspected source of infection? No. Patient's initial sepsis screen is negative. Risk Assessment: Do you want to hurt yourself or someone else? Patient reports no desire to harm self or others. Onset of symptoms was July 08, 2023. 15:40 Method Of Arrival: Ambulatory cm10 15:40 Acuity: DENISE 3 cm10 Triage Assessment: 15:42 General: Appears in no apparent distress. Behavior is anxious. Pain: Denies pain. cm10 Neuro: Reports numbness in generalizied body numbness. Cardiovascular: Patient's skin is warm and dry. Respiratory: Airway is patent Respiratory effort is even, unlabored, Respiratory pattern is regular, symmetrical. CLEATER: 15:43 LMP N/A - Hysterectomy, Not cm10 Historical: - Allergies: 15:42 No Known Allergies; cm10 - PMHx: 15:42 Anxiety; cm10 - Immunization history:: Adult Immunizations up to date, Client reports receiving the 2nd dose of the Covid vaccine. - Social history:: Smoking status: Patient denies any tobacco usage or history of. Screenin:43 Abuse screen: Denies threats or abuse. Nutritional screening: No deficits noted. cm10 Tuberculosis screening: No symptoms or risk factors identified. 15:45 [facility] ED Fall Risk Assessment (Adult) History of falling in the last 3 months, cm10 including since admission No falls in past 3 months (0 pts) Confusion or Disorientation No (0 pts) Intoxicated or Sedated No (0 pts) Impaired Gait No (0 pts) Mobility Assist Device Used No (0 pt) Altered Elimination No (0 pt). Assessment: 16:57 General: Appears in no apparent distress. Behavior is appropriate for age, anxious. ko1 Pain: Denies pain. Neuro: Reports numbness. Cardiovascular: No deficits noted. Respiratory: No deficits noted. GI: No deficits noted. : No deficits noted. EENT: No deficits noted. Derm: No deficits noted. Musculoskeletal: No deficits noted. 19:07 Reassessment: ASSUMED CARE OF PT. PT SLEEPING IN BED. EASILY AROUSED TO VERBAL STIMULI. jj7 AT BEDSIDE. NO DISTRESS NOTED. NO NEEDS AT THIS TIME. VS STABLE. CALL BOONE IN REACH. Vital Signs: 15:40 BP 154 / 96; Pulse 97; Resp 17; Temp 97.8; Pulse Ox 98% ; Weight 56.7 kg; cm10 16:57 BP 137 / 85; Pulse 92; Resp 16; Pulse Ox 99% ; ko1 18:45 BP 147 / 90; Pulse 80; Resp 16; Pulse Ox 98% ; ko1 19:07 BP 118 / 77; Pulse 59; Resp 17; Pulse Ox 98% ; jj7 20:10 BP 113 / 73; Pulse 80; Resp 14; Pulse Ox 97% ; Pain 0/10; jj7 20:10 Pain Scale: Adult jj7 ED Course: 15:33 Patient arrived in ED. mg5 15:33 Danny Dillon DO is Attending Physician. ms3 15:42 Triage completed. cm10 15:43 Arm band placed on left wrist. cm10 16:31 XRAY Chest (1 view) In Process Unspecified. EDMS 16:35 CT Head Brain wo Cont In Process Unspecified. EDMS 16:47 Diana Gonzalez, RN is Primary Nurse. ko1 16:52 Inserted saline lock: 22 gauge in left antecubital area, using aseptic technique. Blood ds4 collected. 16:54 Basic Metabolic Panel Sent. ko1 16:54 CBC with Diff Sent. ko1 16:54 LFT's Sent. ko1 16:54 Magnesium Sent. ko1 16:54 Troponin HS Sent. ko1 16:57 Patient has correct armband on for positive identification. Bed in low position. Call ko1 light in reach. Provided Education on: na. 18:45 Client placed on continuous cardiac and pulse oximetry monitoring. NIBP monitoring ko1 applied. ekg monitor tech on. Door closed. Noise minimized. Warm blanket given. 19:27 Iftikhar Stallworth DO is Referral Physician. ms3 20:10 No provider procedures requiring assistance completed. IV discontinued, intact, jj7 bleeding controlled, No redness/swelling at site. Pressure dressing applied. Administered Medications: 18:26 Drug: Ativan IVP 0.5 mg IVP once Route: IVP; Site: left antecubital; ko1 Medication: 15:45 VIS not applicable for this client. cm10 Outcome: 19:27 Discharge ordered by . ms3 20:10 Discharged to home via wheelchair, with significant other, stella 20:10 Condition: improved 20:10 Discharge instructions given to patient, significant other, Instructed on discharge instructions, follow up and referral plans. Demonstrated understanding of instructions, follow-up care, 20:19 Patient left the ED. jj7 Signatures: Dispatcher [employer] EDMS Amos Guardado ds4 Danny Dillon DO DO ms3 Diana Gonzalez RN RN ko1 Alex Lowery RN RN petty7 Lydia Melissa RN RN cm10 Casandra Allison mg5 Corrections: (The following items were deleted from the chart) 15:47 15:40 Chief complaint: Patient states: patient reports feeling head numbness, jaw pain cm10 from clinching, shahid leg numbess and is "feeling weird" for 2-3 days. patient reports having a history of anxiety, but doesn't know if this what that is cm10
--- NOTE | 2023-07-11 19:28 | EDPHYS ---
Physician Documentation [facility] Name: Delores West Age: 52 yrs Sex: Female : 1970 Arrival Date: 07/11/2023 Time: 15:29 Bed 14 Private MD: ED Physician Danny Dillon HPI: 07/11 22:25 This 52 yrs old Female presents to ER via Ambulatory with complaints of LEG ms3 NUMBNESS. 22:25 52-year-old female with past medical history of anxiety presents to the emergency ms3 department for bilateral lower extremity paresthesias, perioral paresthesias, jaw tightness that has been ongoing for 3 days. Patient states she has had this occur 3 times prior and was told she had anxiety. Patient denies any alleviating or inciting factors. Patient does endorse shortness of breath. MEDICAL RESIDENT: 15:43 LMP N/A - Hysterectomy, Not cm10 Historical: - Allergies: 15:42 No Known Allergies; cm10 - PMHx: 15:42 Anxiety; cm10 - Immunization history:: Adult Immunizations up to date, Client reports receiving the 2nd dose of the Covid vaccine. - Social history:: Smoking status: Patient denies any tobacco usage or history of. ROS: 19:27 Abdomen/GI: Negative for abdominal pain, nausea, vomiting, diarrhea, and constipation, ms3 MS/Extremity: Negative for injury and deformity, Skin: Negative for injury, rash, and discoloration, 19:27 Constitutional: Negative for fever, and chills. Neck: Negative for injury, pain, and swelling, Cardiovascular: Negative for chest pain, and palpitations. 19:27 Psych: Negative for depression, anxiety, suicide ideation, homicidal ideation, and hallucinations, 19:27 Respiratory: Positive for shortness of breath, 19:27 All other systems are negative, 19:27 Neuro: Positive for headache, Paresthesia, ms3 Exam: 17:13 ECG was reviewed by the Attending Physician. ms3 19:27 Constitutional: This is a well developed, well nourished patient who is awake, alert, ms3 and in no acute distress. Head/Face: Normocephalic, atraumatic. Chest/axilla: Normal chest wall appearance and motion. Nontender with no deformity. Cardiovascular: Regular rate and rhythm with a normal S1 and S2. No gallops, murmurs, or rubs. Normal PMI, no JVD. No pulse deficits. Respiratory: Lungs have equal breath sounds bilaterally, clear to auscultation and percussion. No rales, rhonchi or wheezes noted. No increased work of breathing, no retractions or nasal flaring. Abdomen/GI: Soft, non-tender, with normal bowel sounds. No distension or tympany. No guarding or rebound. No evidence of tenderness throughout. Skin: Warm, dry with normal turgor. Normal color with no rashes, no lesions, and no evidence of cellulitis. MS/ Extremity: Pulses equal, no cyanosis. Neurovascular intact. Full, normal range of motion. Neuro: Awake and alert, GCS 15, oriented to person, place, time, and situation. Cranial nerves II-XII grossly intact. Motor strength 5/5 in all extremities. Sensory grossly intact. Cerebellar exam normal. Normal gait. Vital Signs: 15:40 BP 154 / 96; Pulse 97; Resp 17; Temp 97.8; Pulse Ox 98% ; Weight 56.7 kg; cm10 16:57 BP 137 / 85; Pulse 92; Resp 16; Pulse Ox 99% ; ko1 18:45 BP 147 / 90; Pulse 80; Resp 16; Pulse Ox 98% ; ko1 19:07 BP 118 / 77; Pulse 59; Resp 17; Pulse Ox 98% ; jj7 20:10 BP 113 / 73; Pulse 80; Resp 14; Pulse Ox 97% ; Pain 0/10; jj7 20:10 Pain Scale: Adult jj7 MDM: 16:01 Patient medically screened. ms3 19:27 Differential diagnosis: abnormal EKG, acute myocardial infarction, coronary artery ms3 disease pneumonia. HEART Score: History: Slightly Suspicious (0), ECG: Normal (0), Age: > 45 and < 65 years (1), Risk Factors: No Risk Factors Known (0), Troponin: < or = 1 x Normal Limit (0), Total Score = 1. Data reviewed: vital signs, nurses notes, lab test result(s), EKG, radiologic studies, and as a result, I will discharge patient. I considered the following discharge prescriptions or medication management in the emergency department Medications were administered in the Emergency Department. See MAR. Independent interpretation of the following test(s) in the Emergency Department EKG: See my EKG interpretation above. Historians other than the Patient: Spouse/Significant Other: . Counseling: I had a detailed discussion with the patient and/or guardian regarding the historical points, exam findings, and any diagnostic results supporting the discharge/admit diagnosis, lab results, radiology results, the need for outpatient follow up, to return to the emergency department if symptoms worsen or persist or if there are any questions or concerns that arise at home. Response to treatment: the patient's symptoms have markedly improved after treatment, and as a result, I will discharge patient. ED course: Discussed labs, EKG, chest x-ray, CT head with patient and her . Patient to follow-up with Dr. Powell and Dr. Stallworth in 2 to 3 days. Patient and her understand and agree with plan. All questions were answered. Return precautions discussed include worsening symptoms, or any other concerns. On reevaluation patient is alert and orient x4, in no apparent distress, nontoxic-appearing, speaking full sentences. 07/11 16:01 Order name: Basic Metabolic Panel; Complete Time: 17:25 ms3 07/11 16:01 Order name: CBC with Diff; Complete Time: 17:25 ms3 07/11 16:01 Order name: LFT's; Complete Time: 17:25 ms3 07/11 16:01 Order name: Magnesium; Complete Time: 17:25 ms3 07/11 16:01 Order name: Troponin HS; Complete Time: 17:25 ms3 07/11 16:01 Order name: XRAY Chest (1 view); Complete Time: 17:25 ms3 07/11 16:01 Order name: CT Head Brain wo Cont; Complete Time: 18:05 ms3 07/11 16:01 Order name: EKG; Complete Time: 16:02 ms3 07/11 16:01 Order name: Cardiac monitoring; Complete Time: 16:48 ms3 07/11 16:01 Order name: EKG - Nurse/Tech; Complete Time: 17:07 ms3 07/11 16:01 Order name: IV Saline Lock; Complete Time: 16:54 ms3 07/11 16:01 Order name: Labs collected and sent; Complete Time: 16:54 ms3 07/11 16:01 Order name: O2 Per Protocol; Complete Time: 16:45 ms3 07/11 16:01 Order name: O2 Sat Monitoring; Complete Time: 16:45 ms3 EC:13 Rate is 67 beats/min. Rhythm is regular. QRS [place] is Normal. [place] interval is normal. QRS ms3 interval is normal. QT interval is normal. Clinical impression: Normal ECG. Interpreted by me. Reviewed by me. Administered Medications: 18:26 Drug: Ativan IVP 0.5 mg IVP once Route: IVP; Site: left antecubital; ko1 Disposition Summary: 07/11/23 19:27 Discharge Ordered Notes: Location: Home ms3 Condition: Stable ms3 Diagnosis - Paresthesia of legs ms3 - Elevated blood-pressure reading, without diagnosis of hypertension ms3 Followup: ms3 - With: Iftikhar Stallworth DO - When: 2 - 3 days - Reason: Recheck today's complaints Discharge Instructions: - Discharge Summary Sheet ms3 - Paresthesia, [id number] ms3 - DASH Eating Plan ms3 Forms: - Medication Reconciliation Form ms3 - Thank You Letter ms3 - Antibiotic Education ms3 - Prescription Opioid Use ms3 - Patient Portal Instructions ms3 - Leadership Thank You Letter ms3 Signatures: Dispatcher [employer] EDMS Danny Dillon DO DO ms3 Diana Gonzalez RN RN ko1 Lydia Melissa RN RN cm10 Corrections: (The following items were deleted from the chart) 22:26 22:25 Constitutional: This is a well developed, well nourished patient who is awake, ms3 alert, and in no acute distress. Head/Face: Normocephalic, atraumatic. Chest/axilla: Normal chest wall appearance and motion. Nontender with no deformity. Cardiovascular: Regular rate and rhythm with a normal S1 and S2. No gallops, murmurs, or rubs. Normal PMI, no JVD. No pulse deficits. Respiratory: Lungs have equal breath sounds bilaterally, clear to auscultation and percussion. No rales, rhonchi or wheezes noted. No increased work of breathing, no retractions or nasal flaring. Abdomen/GI: Soft, non-tender, with normal bowel sounds. No distension or tympany. No guarding or rebound. No evidence of tenderness throughout. Skin: Warm, dry with normal turgor. Normal color with no rashes, no lesions, and no evidence of cellulitis. MS/ Extremity: Pulses equal, no cyanosis. Neurovascular intact. Full, normal range of motion. ms3 22:27 22:25 Constitutional: Negative for fever, and chills. Neck: Negative for injury, pain, ms3 and swelling, Cardiovascular: Negative for chest pain, and palpitations. ms3 22:27 22:25 Respiratory: Positive for shortness of breath, ms3 ms3 22:27 22:25 Abdomen/GI: Negative for abdominal pain, nausea, vomiting, diarrhea, and ms3 constipation, MS/Extremity: Negative for injury and deformity, Skin: Negative for injury, rash, and discoloration, ms3 22:27 22:25 All other systems are negative, ms3 ms3 22:27 22:25 Neuro: Negative for headache, weakness, numbness, tingling. Psych: Negative for ms3 depression, anxiety, suicide ideation, homicidal ideation, and hallucinations, ms3 22:28 22:25 Constitutional: This is a well developed, well nourished patient who is awake, ms3 alert, and in no acute distress. Head/Face: Normocephalic, atraumatic. Chest/axilla: Normal chest wall appearance and motion. Nontender with no deformity. Cardiovascular: Regular rate and rhythm with a normal S1 and S2. No gallops, murmurs, or rubs. Normal PMI, no JVD. No pulse deficits. Respiratory: Lungs have equal breath sounds bilaterally, clear to auscultation and percussion. No rales, rhonchi or wheezes noted. No increased work of breathing, no retractions or nasal flaring. Abdomen/GI: Soft, non-tender, with normal bowel sounds. No distension or tympany. No guarding or rebound. No evidence of tenderness throughout. Skin: Warm, dry with normal turgor. Normal color with no rashes, no lesions, and no evidence of cellulitis. MS/ Extremity: Pulses equal, no cyanosis. Neurovascular intact. Full, normal range of motion. ms3 22:31 19:27 ED course: Discussed labs, EKG, chest x-ray, CT head with patient and her ms3 . Patient to follow-up with Dr. Powell and Dr. Stallworth in 2 to 3 days. Patient and her understand and agree with plan. All questions were answered. Return precautions discussed include worsening symptoms, or any other concerns. On reevaluation patient is alert and orient x4, in no apparent distress, nontoxic-appearing, ambulatory in the emergency department, speaking full sentences. ms3
[2023-07-11 20:53] VITALS: TEMP 97.8
[2023-07-11 21:11] VITALS: BP 113/73; O2SAT 97
--- NOTE | 2023-07-12 12:26 | EKG ---
Test Date: 2023-07-11 Test Time: 17:01:43 Fire Protection Engineering Technician: ABIGAIL MEASUREMENT RESULTS: Intervals: Rate: 67 [place]: 146 QRSD: 78 QT: 402 QTc: 424 [place]: P: 53 [place]: 146 QRS: 57 T: 52 INTERPRETIVE STATEMENTS: Normal sinus rhythm with sinus arrhythmia Normal ECG Compared to ECG 05/13/2021 12:22:00 No significant changes Electronically Signed On 07-12-23 12:23:52 CDT by Blayne Arteaga
== END 2023-07-11 20:19 | disposition home or self-care (01) ==
LOC: ER 15:29
DX: R20.2 Paresthesia of skin (principal); R03.0 Elevated blood-pressure reading, without diagnosis of hypertension; R51.9 Headache, unspecified; R06.02 Shortness of breath
CPT/HCPCS: 36415; 70450; 71045; 80048; 80076; 83735; 84484; 85025; 93005; 96374; 99285